=== PATIENT | female | born 1955 | race African-American/Black ===

== ENCOUNTER 2018-08-29 12:50 | Inpatient (IN) | payer MEDICAID ==
[~2018-08-29] VITALS: Ht 165.1 cm; Wt 86.6 kg
[~2018-08-29 12:50] MED LIST: ALBU18HF2 INH; ALBU2.5V13 NEB; AMLO10TA80 PO; AMLO5TAB88 PO; ASPI-1159 PO; BUDE6HFA IH; CHOL100044 PO; DOCU-138 PO; FAMO20TA8 PO; FLUT1DIS3 IH; FURO-152 PO; LISI1TAB13 PO; LORA10TA7 PO; METH4TAB17 PO; NICO-681 TD; NICO1PAT15 TD; OMEP20TA2 PO
[2018-08-29] MEDS ORDERED: ALBUTEROL (0.083%) 2.5MG/3ML NEB HHN STA (14:00)
[2018-08-29] MEDS ORDERED: METHYLPREDNISOLONE SOD SUCC 125 MG/2 ML VIAL IV STA (14:00)
[2018-08-29] MEDS ORDERED: HYDROCODONE/ACETAMINOPHEN 5/325MG TABLET PO STA (14:00)
[2018-08-29] MEDS ORDERED: IPRATROPIUM BROMIDE (0.02%) 0.5MG/2.5ML NEB HHN STA (14:00)
[2018-08-29 14:14] LABS: HEMATOCRIT. 43.1 % (36.0-48.0); HEMOGLOBIN. 14.1 g/dL (12.0-16.0); LYMPHOCYTES % 25.1 % (20.0-50.0); MEAN CORPUSCULAR HEMOGLOBIN 30.1 pg (28.0-32.0); MEAN CORPUSCULAR VOLUME 91.7 fL (81.0-99.0); MEAN PLATELET VOLUME 8.8 fl (7.4-10.4); MONOCYTES % 7.1 % (2.0-8.0); NEUTROPHILS % 65.8 % (40.0-76.0); PLATELET 267 x1000/uL (130-400); RED CELL DISTRIBUTION WIDTH 14.4 % (11.6-14.6)
[2018-08-29 14:21] LABS: CHLORIDE 103 mEq/L (98-107)
[2018-08-29] MEDS ORDERED: CLONIDINE 0.1MG TABLET PO PRN (16:15)
[2018-08-29] MEDS ORDERED: IPRATROPIUM/ALBUTEROL 0.5-3(2.5)MG/3ML NEB HHN PRN (16:15)
[2018-08-29] MEDS: KETOROLAC 30MG/ML VIAL IV PRN (17:22)
[2018-08-29 20:00] VITALS: BP 138/110
[2018-08-29] MEDS: MONTELUKAST SODIUM 10MG TABLET PO SCH (21:30)
[2018-08-29] MEDS: AMLODIPINE 5MG TABLET PO SCH (21:30)
[2018-08-30] VITALS (7 sets, daily range): BP systolic 121–151; BP diastolic 49–86
[2018-08-30] MEDS: KETOROLAC 30MG/ML VIAL IV PRN ×3 (00:25→17:13)
[2018-08-30] MEDS: IPRATROPIUM/ALBUTEROL 0.5-3(2.5)MG/3ML NEB HHN SCH ×5 (01:07→16:03)
[2018-08-30 06:35] LABS: HEMATOCRIT. 39.6 % (36.0-48.0); MEAN CORPUSCULAR HEMOGLOBIN 30.5 pg (28.0-32.0); MEAN CORPUSCULAR VOLUME 92.7 fL (81.0-99.0); MEAN PLATELET VOLUME 8.9 fl (7.4-10.4); PLATELET 238 x1000/uL (130-400); RED BLOOD CELL COUNT 4.27 mill/uL (4.2-5.4); RED CELL DISTRIBUTION WIDTH 14.2 % (11.6-14.6)
[2018-08-30 06:55] LABS: CHLORIDE 102 mEq/L (98-107)
[2018-08-30 08:03] LABS: PLATELET ESTIMATE NORMAL
[2018-08-30] MEDS: METHYLPREDNISOLONE SOD SUCC 40 MG/ML VIAL IV SCH ×2 (09:05→18:11)
[2018-08-30] MEDS: AMLODIPINE 5MG TABLET PO SCH (09:06)
[2018-08-30] MEDS ORDERED: NA PHOS,M-B/NA PHOS,DI-BA ENEMA 118ML PR PRN (09:45)
[2018-08-30] MEDS ORDERED: LACTULOSE 20G/30ML UDC PO SCH (09:45)
[2018-08-30] MEDS ORDERED: BISACODYL 10MG SUPP PR PRN (09:45)
[2018-08-30] MEDS ORDERED: NICOTINE 14MG PATCH TD SCH (13:30)
[2018-08-30] MEDS: MONTELUKAST SODIUM 10MG TABLET PO SCH (17:08)
== END 2018-08-30 19:20 | disposition home or self-care (01) | DRG 140 ==
LOC: ER 12:50 → 5WST 15:13 → EDBEDREQ 15:16 → EDBEDREQTM 15:16 → ENRESERV 16:04
PROVIDERS: ADMIT Internal Medicine; ATTEND Internal Medicine
DX: J44.1 Chronic obstructive pulmonary disease with (acute) exacerbation (principal); J96.20 Acute and chronic respiratory failure, unspecified whether with hypoxia or hypercapnia; Z99.81 Dependence on supplemental oxygen; F17.210 Nicotine dependence, cigarettes, uncomplicated; G40.909 Epilepsy, unspecified, not intractable, without status epilepticus; I10 Essential (primary) hypertension; J98.11 Atelectasis; E66.9 Obesity, unspecified; D72.825 Bandemia; K80.20 Calculus of gallbladder without cholecystitis without obstruction; M94.0 Chondrocostal junction syndrome [Tietze]; Z90.710 Acquired absence of both cervix and uterus; Y93.89 Activity, other specified; Y92.89 Other specified places as the place of occurrence of the external cause; Y99.8 Other external cause status; Y08.89XA Assault by other specified means, initial encounter; Z79.899 Other long term (current) drug therapy; Z79.82 Long term (current) use of aspirin; Z71.6 Tobacco abuse counseling; Z68.31 Body mass index [BMI] 31.0-31.9, adult; Z98.51 Tubal ligation status; Z71.3 Dietary counseling and surveillance
CPT/HCPCS: 36415; 71045; 76700; 80048; 83880; 84484; 93005; 94640; 96374; 99285; 99406; J1885; J2920; J2930; J7611; J7620

== ENCOUNTER 2018-11-23 23:15 | Inpatient (IN) | payer MEDICAID ==
[~2018-11-23] VITALS: Ht 170.2 cm; Wt 88.1 kg
[~2018-11-23 23:15] MED LIST changes: -ASPI-1159 PO; +ASPI-1393 PO
[2018-11-23] MEDS ORDERED: ALBUTEROL (0.083%) 2.5MG/3ML NEB HHN STA (23:32)
[2018-11-23] MEDS ORDERED: IPRATROPIUM BROMIDE (0.02%) 0.5MG/2.5ML NEB HHN STA (23:32)
[2018-11-23] MEDS ORDERED: METHYLPREDNISOLONE SOD SUCC 125 MG/2 ML VIAL IV STA (23:32)
[2018-11-23] MEDS ORDERED: ASPIRIN 81MG TABLET PO ONE (23:45)
[2018-11-23] MEDS ORDERED: ALPRAZOLAM 0.5 MG TABLET PO ONE (23:45)
[2018-11-23] MEDS ORDERED: MAGNESIUM 2 G PREMIX 50 ML IV ONE (23:45)
[2018-11-24 00:18] LABS: CHLORIDE 103 mEq/L (98-107); HEMATOCRIT. 44.7 % (36.0-48.0); HEMOGLOBIN. 14.6 g/dL (12.0-16.0); LYMPHOCYTES % 30.2 % (20.0-50.0); MEAN CORPUSCULAR VOLUME 91.6 fL (81.0-99.0); MEAN PLATELET VOLUME 8.4 fl (7.4-10.4); MONOCYTES % 9.4 % (2.0-8.0); NEUTROPHILS % 58.4 % (40.0-76.0); PLATELET 269 x1000/uL (130-400); RED BLOOD CELL COUNT 4.88 mill/uL (4.2-5.4)
[2018-11-24 05:30] VITALS: BP 117/60
[2018-11-24 05:45] VITALS: BP 117/60
[2018-11-24] MEDS ORDERED: IPRATROPIUM/ALBUTEROL 0.5-3(2.5)MG/3ML NEB HHN PRN (07:00)
[2018-11-24] MEDS ORDERED: CLONIDINE 0.1MG TABLET PO PRN (07:00)
[2018-11-24 08:00] VITALS: BP 123/70
[2018-11-24 08:17] LABS: BG BASE EXCESS 0.3 mmol/L (-2.0-2.0); BG CARBOXYHEMOGLOBIN 1.7 % (0.5-1.5); BG DEOXYHEMOGLOBIN 9.3 % (0.0-5.0); BG HCO3 ACT 25.7 mmol/L (22.0-26.0); BG METHEMOGLOBIN 0.1 % (0.0-1.5); BG OXYGEN SATURATION 90.5 % (92.0-98.5); BG OXYHEMOGLOBIN 88.9 % (94.0-97.0); BG PCO2 43.9 mmHg (35.0-45.0); BG PH 7.385 (7.350-7.450); BG PO2 62.1 mmHg (75.0-100.0); BG SAMPLE SITE RIGHT RADIAL; BG TOTAL HEMOGLOBIN 15.4 g/dL (12.0-18.0); BG VENT MODE NASAL CANNULA
[2018-11-24] MEDS: METHYLPREDNISOLONE SOD SUCC 40 MG/ML VIAL IV SCH ×3 (08:50→21:54)
[2018-11-24] MEDS: PANTOPRAZOLE 40MG DR TABLET PO SCH (08:50)
[2018-11-24] MEDS: ENOXAPARIN 40MG/0.4ML SYR SUBCUT SCH (08:50)
[2018-11-24] MEDS ORDERED: HYDROCODONE/ACETAMINOPHEN 5/325MG TABLET PO PRN (10:00)
[2018-11-24] MEDS ORDERED: ONDANSETRON HCL 4MG/2ML INJ IV PRN (10:00)
[2018-11-24] MEDS ORDERED: GUAIFENESIN-DM 200MG-20MG/10ML UDC PO PRN (10:00)
[2018-11-24 10:05] LABS: CREATINE KINASE 73 IU/L (26-192)
[2018-11-24 10:07] LABS: CREATINE KINASE MB FRACTION 2.2 ng/mL (0.5-3.6)
[2018-11-24] MEDS: CHOLECALCIFEROL (D3) 1000 UNIT TABLET PO SCH (10:58)
[2018-11-24] MEDS: FAMOTIDINE 20MG TABLET PO SCH ×2 (10:59→20:21)
[2018-11-24] MEDS: HYDROCHLOROTHIAZIDE 25MG TABLET PO SCH (10:59)
[2018-11-24] MEDS: LORATADINE 10MG TABLET PO SCH (11:00)
[2018-11-24] MEDS: FUROSEMIDE 20MG TABLET PO SCH (11:00)
[2018-11-24] MEDS: AMLODIPINE 10MG TABLET PO SCH (11:00)
[2018-11-24] MEDS: LISINOPRIL 20MG TABLET PO SCH (11:01)
[2018-11-24] MEDS: NICOTINE 14MG PATCH TD SCH (11:41)
[2018-11-24 12:00] VITALS: BP 106/58
[2018-11-24] MEDS: AZITHROMYCIN 500 MG in DEXT 5% WATER 250 ML IV SCH (12:30)
[2018-11-24] MEDS: IPRATROPIUM/ALBUTEROL 0.5-3(2.5)MG/3ML NEB HHN SCH ×3 (12:55→20:25)
[2018-11-24 16:00] VITALS: BP 111/69
[2018-11-24 19:29] LABS: CREATINE KINASE 77 IU/L (26-192)
[2018-11-24 20:00] VITALS: BP 103/51
[2018-11-24] MEDS: GUAIFENESIN 600MG ER TABLET PO SCH (20:19)
[2018-11-25] VITALS: BP 105/51
[2018-11-25] MEDS: IPRATROPIUM/ALBUTEROL 0.5-3(2.5)MG/3ML NEB HHN SCH ×5 (00:40→15:14)
[2018-11-25 01:49] LABS: CLARITY URINE CLEAR (CLEAR); COLOR URINE YELLOW (YELLOW); KETONES URINE NEGATIVE (NEGATIVE); LEUKOCYTE ESTERASE URINE NEGATIVE (NEGATIVE); NITRITE URINE NEGATIVE (NEGATIVE); OCCULT BLOOD URINE NEGATIVE (NEGATIVE); PROTEIN URINE NEGATIVE (NEGATIVE); UROBILINOGEN URINE 0.2 E.U./dL (0.2-1.0)
[2018-11-25 02:00] LABS: *AMPHETAMINES SCREEN URINE NEGATIVE (NEGATIVE); *BARBITURATES SCREEN URINE NEGATIVE (NEGATIVE); *BENZODIAZEPINES SCREEN URINE NEGATIVE (NEGATIVE); *COCAINE SCREEN URINE NEGATIVE (NEGATIVE); METHADONE URINE SCREEN NEGATIVE (NEGATIVE); OPIATES URINE SCREEN NEGATIVE (NEGATIVE)
[2018-11-25 02:01] LABS: CANNABINOID URINE SCREEN NEGATIVE (NEGATIVE); PHENCYCLIDINE URINE SCREEN NEGATIVE (NEGATIVE)
[2018-11-25 04:00] VITALS: BP 100/42
[2018-11-25] MEDS: METHYLPREDNISOLONE SOD SUCC 40 MG/ML VIAL IV SCH (05:57)
[2018-11-25] MEDS: PANTOPRAZOLE 40MG DR TABLET PO SCH (05:57)
[2018-11-25 08:00] VITALS: BP 127/67
[2018-11-25] MEDS: GUAIFENESIN 600MG ER TABLET PO SCH (09:38)
[2018-11-25] MEDS: LORATADINE 10MG TABLET PO SCH (09:38)
[2018-11-25] MEDS: FUROSEMIDE 20MG TABLET PO SCH (09:38)
[2018-11-25] MEDS: LISINOPRIL 20MG TABLET PO SCH (09:39)
[2018-11-25] MEDS: HYDROCHLOROTHIAZIDE 25MG TABLET PO SCH (09:39)
[2018-11-25] MEDS: CHOLECALCIFEROL (D3) 1000 UNIT TABLET PO SCH (09:39)
[2018-11-25] MEDS: FAMOTIDINE 20MG TABLET PO SCH (09:39)
[2018-11-25] MEDS: NICOTINE 14MG PATCH TD SCH (09:39)
[2018-11-25] MEDS: AMLODIPINE 10MG TABLET PO SCH (09:39)
[2018-11-25] MEDS: ENOXAPARIN 40MG/0.4ML SYR SUBCUT SCH (09:40)
[2018-11-25 12:00] VITALS: BP 116/58
[2018-11-25] MEDS: AZITHROMYCIN 500 MG in DEXT 5% WATER 250 ML IV SCH (13:23)
[2018-11-25 16:00] VITALS: BP 108/53
[2018-11-25 16:26] VITALS: BP 120/60
[2018-11-26] MEDS ORDERED: PREDNISONE 20MG TABLET PO SCH (09:00)
== END 2018-11-25 17:56 | disposition home or self-care (01) | DRG 140 ==
LOC: ER 23:37 → 5WST 11-24 02:24 → EDBEDREQTM 11-24 02:33 → EDBEDREQ 11-24 02:33 → EDBEDREQDT 11-24 02:33 → ENRESERV 11-24 02:58
PROVIDERS: ADMIT Internal Medicine; ATTEND Internal Medicine
DX: J44.1 Chronic obstructive pulmonary disease with (acute) exacerbation (principal); J96.00 Acute respiratory failure, unspecified whether with hypoxia or hypercapnia; Z99.81 Dependence on supplemental oxygen; F17.210 Nicotine dependence, cigarettes, uncomplicated; I10 Essential (primary) hypertension; D72.821 Monocytosis (symptomatic); Z90.710 Acquired absence of both cervix and uterus; Z98.51 Tubal ligation status; Z88.5 Allergy status to narcotic agent; Z79.82 Long term (current) use of aspirin; Z79.899 Other long term (current) drug therapy; Z71.6 Tobacco abuse counseling
CPT/HCPCS: 36415; 36600; 71045; 80061; 80305; 82375; 82550; 82553; 82805; 83735; 83880; 84484; 93005; 93306; 93970; 94640; 94644; 96365; 96366; 96375; 99285; J0456; J1650; J2920; J2930; J3475; J7050; J7060; J7611; J7620

== ENCOUNTER 2018-12-10 22:50 | Inpatient (IN) | payer MEDICAID ==
[~2018-12-10] VITALS: Ht 170.2 cm; Wt 81.6 kg
[2018-12-10] MEDS ORDERED: IPRATROPIUM BROMIDE (0.02%) 0.5MG/2.5ML NEB HHN STA (23:19)
[2018-12-10] MEDS ORDERED: METHYLPREDNISOLONE SOD SUCC 125 MG/2 ML VIAL IV STA (23:19)
[2018-12-10] MEDS ORDERED: ONDANSETRON HCL 4MG/2ML INJ IV STA (23:19)
[2018-12-10] MEDS ORDERED: MAGNESIUM 2 G PREMIX 50 ML IV ONE (23:30)
[2018-12-10] MEDS ORDERED: HYDROCODONE/ACETAMINOPHEN 5/325MG TABLET PO ONE (23:30)
[2018-12-10] MEDS: ALBUTEROL (0.083%) 2.5MG/3ML NEB HHN SCH (23:45)
[2018-12-11] VITALS (8 sets, daily range): BP systolic 112–142; BP diastolic 55–77
[2018-12-11 00:14] LABS: BASOPHILS % 0.6 % (0.0-2.0); EOSINOPHILS % 0.8 % (0.0-5.0); HEMATOCRIT. 40.2 % (36.0-48.0); HEMOGLOBIN. 13.3 g/dL (12.0-16.0); LYMPHOCYTES % 26.1 % (20.0-50.0); MEAN CORPUSCULAR HEMOGLOBIN 30.2 pg (28.0-32.0); MEAN CORPUSCULAR VOLUME 91.3 fL (81.0-99.0); MEAN PLATELET VOLUME 8.6 fl (7.4-10.4); MONOCYTES % 7.9 % (2.0-8.0); NEUTROPHILS % 64.6 % (40.0-76.0); PLATELET 212 x1000/uL (130-400); RED BLOOD CELL COUNT 4.41 mill/uL (4.2-5.4); RED CELL DISTRIBUTION WIDTH 13.6 % (11.6-14.6)
[2018-12-11] MEDS: ALBUTEROL (0.083%) 2.5MG/3ML NEB HHN SCH ×2 (00:15→00:45)
[2018-12-11 00:25] LABS: CHLORIDE 108 mEq/L (98-107)
[2018-12-11] MEDS ORDERED: ONDANSETRON HCL 4MG/2ML INJ IV PRN (06:00)
[2018-12-11] MEDS ORDERED: ACETAMINOPHEN 650MG/20.3ML UDC PO PRN (06:00)
[2018-12-11] MEDS: METHYLPREDNISOLONE SOD SUCC 40 MG/ML VIAL IV SCH ×3 (06:53→21:02)
[2018-12-11] MEDS: LORAZEPAM 2MG/ML CPJ IV PRN ×2 (06:54→23:16)
[2018-12-11] MEDS: OMEPRAZOLE 20MG CAPSULE EXTENDED RELEASE PO SCH (06:54)
[2018-12-11] MEDS: HYDROCODONE/ACETAMINOPHEN 5/325MG TABLET PO PRN ×2 (06:55→21:09)
[2018-12-11] MEDS: ENOXAPARIN 40MG/0.4ML SYR SUBCUT SCH (09:11)
[2018-12-11 09:48] LABS: CREATINE KINASE 75 IU/L (26-192)
[2018-12-11 09:49] LABS: CREATINE KINASE MB FRACTION 1.5 ng/mL (0.5-3.6)
[2018-12-11] MEDS ORDERED: POTASSIUM CHLORIDE 20MEQ TABLET SR PO SCH (14:15)
[2018-12-11] MEDS: NICOTINE 14MG PATCH TD SCH (14:57)
[2018-12-11] MEDS: AMLODIPINE 10MG TABLET PO SCH (19:11)
[2018-12-11] MEDS: GUAIFENESIN 600MG ER TABLET PO SCH (21:02)
[2018-12-11] MEDS: BUDESONIDE 0.5MG/2ML NEB HHN SCH (21:37)
[2018-12-12 04:00] VITALS: BP 112/45
[2018-12-12] MEDS: METHYLPREDNISOLONE SOD SUCC 40 MG/ML VIAL IV SCH ×3 (06:19→21:27)
[2018-12-12] MEDS: OMEPRAZOLE 20MG CAPSULE EXTENDED RELEASE PO SCH (06:19)
[2018-12-12 08:00] VITALS: BP 102/47
[2018-12-12] MEDS: LISINOPRIL 20MG TABLET PO SCH (08:32)
[2018-12-12] MEDS: AMLODIPINE 10MG TABLET PO SCH (08:32)
[2018-12-12] MEDS: FUROSEMIDE 20MG TABLET PO SCH (09:00)
[2018-12-12] MEDS: BUDESONIDE 0.5MG/2ML NEB HHN SCH ×2 (09:14→20:04)
[2018-12-12] MEDS: GUAIFENESIN 600MG ER TABLET PO SCH ×2 (09:51→21:27)
[2018-12-12] MEDS: ASPIRIN 81MG TABLET PO SCH (09:51)
[2018-12-12] MEDS: LORATADINE 10MG TABLET PO SCH (09:51)
[2018-12-12] MEDS: CHOLECALCIFEROL (D3) 1000 UNIT TABLET PO SCH (09:51)
[2018-12-12] MEDS: ENOXAPARIN 40MG/0.4ML SYR SUBCUT SCH (09:51)
[2018-12-12] MEDS: NICOTINE 14MG PATCH TD SCH (09:52)
[2018-12-12 12:00] VITALS: BP 110/51
[2018-12-12] MEDS: ALPRAZOLAM 0.25 MG TABLET PO SCH ×2 (14:44→21:27)
[2018-12-12 16:02] VITALS: BP 98/47
[2018-12-12 16:16] LABS: CHLORIDE 105 mEq/L (98-107)
[2018-12-12 20:00] VITALS: BP 109/52
[2018-12-13] VITALS: BP 111/62
[2018-12-13 04:00] VITALS: BP 130/80
[2018-12-13 06:56] LABS: HEMATOCRIT. 41.3 % (36.0-48.0); HEMOGLOBIN. 13.4 g/dL (12.0-16.0); MEAN CORPUSCULAR HEMOGLOBIN 30.2 pg (28.0-32.0); MEAN CORPUSCULAR VOLUME 92.8 fL (81.0-99.0); MEAN PLATELET VOLUME 9.3 fl (7.4-10.4); PLATELET 214 x1000/uL (130-400); RED BLOOD CELL COUNT 4.45 mill/uL (4.2-5.4)
[2018-12-13] MEDS: ALPRAZOLAM 0.25 MG TABLET PO SCH ×3 (06:57→21:35)
[2018-12-13] MEDS: METHYLPREDNISOLONE SOD SUCC 40 MG/ML VIAL IV SCH ×3 (06:57→21:35)
[2018-12-13 07:09] LABS: CHLORIDE 108 mEq/L (98-107)
[2018-12-13 08:00] VITALS: BP 130/70
[2018-12-13] MEDS: NICOTINE 14MG PATCH TD SCH (08:51)
[2018-12-13] MEDS: LORATADINE 10MG TABLET PO SCH (08:51)
[2018-12-13] MEDS: ENOXAPARIN 40MG/0.4ML SYR SUBCUT SCH (08:51)
[2018-12-13] MEDS: FUROSEMIDE 20MG TABLET PO SCH (08:51)
[2018-12-13] MEDS: CHOLECALCIFEROL (D3) 1000 UNIT TABLET PO SCH (08:51)
[2018-12-13] MEDS: LISINOPRIL 20MG TABLET PO SCH (08:51)
[2018-12-13] MEDS: GUAIFENESIN 600MG ER TABLET PO SCH ×2 (08:52→21:35)
[2018-12-13] MEDS: AMLODIPINE 10MG TABLET PO SCH (08:52)
[2018-12-13] MEDS: ASPIRIN 81MG TABLET PO SCH (08:52)
[2018-12-13] MEDS: FAMOTIDINE 20MG TABLET PO SCH ×2 (08:52→21:35)
[2018-12-13 11:51] VITALS: BP 118/59
[2018-12-13 11:58] LABS: PLATELET ESTIMATE NORMAL
[2018-12-13] MEDS ORDERED: TERBUTALINE SULFATE 1MG/ML VIAL SUBCUT NR (13:30)
[2018-12-13 20:00] VITALS: BP_SYST 121; BP_SYST 126; BP_DIAS 61; BP_DIAS 70
[2018-12-13] MEDS: HYDROCODONE/ACETAMINOPHEN 5/325MG TABLET PO PRN (20:15)
[2018-12-13] MEDS: BUDESONIDE 0.5MG/2ML NEB HHN SCH (21:01)
[2018-12-14] VITALS (7 sets, daily range): BP systolic 109–138; BP diastolic 55–80
[2018-12-14] MEDS: METHYLPREDNISOLONE SOD SUCC 40 MG/ML VIAL IV SCH ×3 (05:23→21:32)
[2018-12-14] MEDS: ALPRAZOLAM 0.25 MG TABLET PO SCH ×3 (05:23→21:15)
[2018-12-14 06:39] LABS: HEMATOCRIT. 40.5 % (36.0-48.0); HEMOGLOBIN. 13.2 g/dL (12.0-16.0); MEAN CORPUSCULAR VOLUME 92.2 fL (81.0-99.0); MEAN PLATELET VOLUME 9.4 fl (7.4-10.4); PLATELET 210 x1000/uL (130-400); RED BLOOD CELL COUNT 4.39 mill/uL (4.2-5.4)
[2018-12-14 06:52] LABS: CHLORIDE 107 mEq/L (98-107)
[2018-12-14] MEDS: GUAIFENESIN 600MG ER TABLET PO SCH ×2 (09:11→21:15)
[2018-12-14] MEDS: DOCUSATE SODIUM 100MG CAPSULE PO SCH (09:11)
[2018-12-14] MEDS: LORATADINE 10MG TABLET PO SCH (09:11)
[2018-12-14] MEDS: LISINOPRIL 20MG TABLET PO SCH (09:11)
[2018-12-14] MEDS: ASPIRIN 81MG TABLET PO SCH (09:11)
[2018-12-14] MEDS: AMLODIPINE 10MG TABLET PO SCH (09:11)
[2018-12-14] MEDS: CHOLECALCIFEROL (D3) 1000 UNIT TABLET PO SCH (09:11)
[2018-12-14] MEDS: FUROSEMIDE 20MG TABLET PO SCH (09:11)
[2018-12-14] MEDS: FAMOTIDINE 20MG TABLET PO SCH ×2 (09:11→21:15)
[2018-12-14] MEDS: NICOTINE 14MG PATCH TD SCH (09:12)
[2018-12-14] MEDS: ENOXAPARIN 40MG/0.4ML SYR SUBCUT SCH (09:12)
[2018-12-14] MEDS: BUDESONIDE 0.5MG/2ML NEB HHN SCH (09:25)
[2018-12-14 13:20] LABS: PLATELET ESTIMATE NORMAL
[2018-12-14] MEDS ORDERED: SORBITOL 70% SOLN 30ML PO SCH (19:00)
[2018-12-14] MEDS: HYDROCODONE/ACETAMINOPHEN 5/325MG TABLET PO PRN (23:42)
[2018-12-15 04:00] VITALS: BP 147/78
[2018-12-15] MEDS: ALPRAZOLAM 0.25 MG TABLET PO SCH ×3 (06:00→14:04)
[2018-12-15] MEDS: METHYLPREDNISOLONE SOD SUCC 40 MG/ML VIAL IV SCH ×2 (06:00→14:11)
[2018-12-15 08:00] VITALS: BP 149/85
[2018-12-15] MEDS: LORATADINE 10MG TABLET PO SCH (08:12)
[2018-12-15] MEDS: FUROSEMIDE 20MG TABLET PO SCH (08:13)
[2018-12-15] MEDS: DOCUSATE SODIUM 100MG CAPSULE PO SCH (08:13)
[2018-12-15] MEDS: CHOLECALCIFEROL (D3) 1000 UNIT TABLET PO SCH (08:13)
[2018-12-15] MEDS: GUAIFENESIN 600MG ER TABLET PO SCH (08:13)
[2018-12-15] MEDS: ASPIRIN 81MG TABLET PO SCH (08:13)
[2018-12-15] MEDS: FAMOTIDINE 20MG TABLET PO SCH (08:13)
[2018-12-15] MEDS: AMLODIPINE 10MG TABLET PO SCH (08:13)
[2018-12-15] MEDS: ENOXAPARIN 40MG/0.4ML SYR SUBCUT SCH (08:14)
[2018-12-15] MEDS: NICOTINE 14MG PATCH TD SCH (08:14)
[2018-12-15] MEDS: LISINOPRIL 20MG TABLET PO SCH (08:17)
[2018-12-15 12:00] VITALS: BP 126/78
[2018-12-15 16:00] VITALS: BP 150/75
[2018-12-15 19:00] VITALS: BP 155/75
== END 2018-12-15 20:25 | disposition home or self-care (01) | DRG 140 ==
LOC: ER 22:50 → 8WST 12-11 03:03 → EDBEDREQ 12-11 03:05 → EDBEDREQDT 12-11 03:05 → EDBEDREQTM 12-11 03:05 → ENRESERV 12-11 03:25
PROVIDERS: ADMIT Internal Medicine; ATTEND Internal Medicine
DX: J44.1 Chronic obstructive pulmonary disease with (acute) exacerbation (principal); J96.00 Acute respiratory failure, unspecified whether with hypoxia or hypercapnia; E87.0 Hyperosmolality and hypernatremia; Z99.81 Dependence on supplemental oxygen; E87.6 Hypokalemia; G40.909 Epilepsy, unspecified, not intractable, without status epilepticus; F17.210 Nicotine dependence, cigarettes, uncomplicated; I10 Essential (primary) hypertension; J06.9 Acute upper respiratory infection, unspecified; Z90.710 Acquired absence of both cervix and uterus; F10.10 Alcohol abuse, uncomplicated; F41.9 Anxiety disorder, unspecified; E78.5 Hyperlipidemia, unspecified; Z79.82 Long term (current) use of aspirin; Z98.51 Tubal ligation status; Z71.6 Tobacco abuse counseling
CPT/HCPCS: 36415; 71045; 80048; 82550; 82553; 83605; 83880; 84484; 93005; 94640; 96365; 96366; 96375; 99285; J1650; J2060; J2405; J2920; J2930; J3105; J3475; J7611; J7626

== ENCOUNTER 2019-01-28 13:39 | Emergency (ER) | payer MEDICAID ==
[~2019-01-28] VITALS: Ht 167.6 cm; Wt 85.0 kg
[2019-01-28] MEDS ORDERED: TRAMADOL 50MG TABLET PO ONE (16:15)
[2019-01-28 16:32] VITALS: BP 172/94
[2019-01-28] MEDS ORDERED: IPRATROPIUM BROMIDE (0.02%) 0.5MG/2.5ML NEB HHN STA (18:36)
[2019-01-28] MEDS ORDERED: ALBUTEROL (0.083%) 2.5MG/3ML NEB HHN STA (18:36)
== END 2019-01-28 20:28 | disposition home or self-care (01) ==
LOC: ER 13:39
DX: S00.83XA Contusion of other part of head, initial encounter (principal); S20.219A Contusion of unspecified front wall of thorax, initial encounter; J44.9 Chronic obstructive pulmonary disease, unspecified; I10 Essential (primary) hypertension; Z79.899 Other long term (current) drug therapy; Y04.0XXA Assault by unarmed brawl or fight, initial encounter; Y93.89 Activity, other specified; Y92.89 Other specified places as the place of occurrence of the external cause; Y99.8 Other external cause status
CPT/HCPCS: 70450; 70486; 71045; 94640; 99284; J7611; Z7610

== ENCOUNTER 2019-05-20 23:48 | Emergency (ER) | payer MEDICAID ==
[~2019-05-20] VITALS: Ht 172.7 cm; Wt 81.0 kg
[~2019-05-20 23:48] MED LIST changes: -ASPI-1393 PO; +ASPI-1497 PO
[2019-05-21] MEDS ORDERED: ALBUTEROL (0.083%) 2.5MG/3ML NEB HHN STA (00:10)
[2019-05-21] MEDS ORDERED: PREDNISONE 20MG TABLET PO STA (00:10)
[2019-05-21] MEDS ORDERED: IPRATROPIUM BROMIDE (0.02%) 0.5MG/2.5ML NEB HHN STA (00:10)
[2019-05-21] MEDS ORDERED: GUAIFENESIN/CODEINE 200-20MG/10ML UDC PO ONE (00:15)
[2019-05-21 00:43] LABS: BASOPHILS % 0.6 % (0.0-2.0); EOSINOPHILS % 0.8 % (0.0-5.0); HEMATOCRIT. 38.9 % (36.0-48.0); HEMOGLOBIN. 12.7 g/dL (12.0-16.0); LYMPHOCYTES % 14.1 % (20.0-50.0); MEAN CORPUSCULAR HEMOGLOBIN 29.6 pg (28.0-32.0); MEAN CORPUSCULAR VOLUME 90.7 fL (81.0-99.0); MEAN PLATELET VOLUME 7.7 fl (7.4-10.4); MONOCYTES % 6.1 % (2.0-8.0); NEUTROPHILS % 78.4 % (40.0-76.0); PLATELET 239 x1000/uL (130-400); RED BLOOD CELL COUNT 4.29 mill/uL (4.2-5.4); RED CELL DISTRIBUTION WIDTH 15.1 % (11.6-14.6)
[2019-05-21 00:46] LABS: CHLORIDE 104 mEq/L (98-107)
[2019-05-21 01:34] VITALS: BP 119/68
== END 2019-05-21 01:42 | disposition home or self-care (01) ==
LOC: ER 23:48
DX: J44.1 Chronic obstructive pulmonary disease with (acute) exacerbation (principal); I10 Essential (primary) hypertension; F17.210 Nicotine dependence, cigarettes, uncomplicated; Z71.6 Tobacco abuse counseling
CPT/HCPCS: 36415; 71045; 80053; 83880; 84484; 85025; 93005; 94640; 99284; 99406; J7512; J7611; Z7610

== ENCOUNTER 2019-05-31 13:14 | Emergency (ER) | payer MEDICAID ==
[~2019-05-31] VITALS: Ht 170.2 cm; Wt 82.0 kg
[2019-05-31] MEDS ORDERED: IBUPROFEN 600MG TABLET PO ONE (15:00)
[2019-05-31 16:20] LABS: CLARITY URINE CLEAR (CLEAR); COLOR URINE YELLOW (YELLOW); KETONES URINE NEGATIVE (NEGATIVE); LEUKOCYTE ESTERASE URINE NEGATIVE (NEGATIVE); NITRITE URINE NEGATIVE (NEGATIVE); OCCULT BLOOD URINE NEGATIVE (NEGATIVE); PROTEIN URINE NEGATIVE (NEGATIVE); SPECIFIC GRAVITY URINE 1.012 (1.005-1.030); UROBILINOGEN URINE 0.2 E.U./dL (0.2-1.0)
[2019-05-31 16:26] VITALS: BP 127/66
== END 2019-05-31 16:26 | disposition home or self-care (01) ==
LOC: ER 13:14
DX: M25.552 Pain in left hip (principal); I10 Essential (primary) hypertension; J45.909 Unspecified asthma, uncomplicated; F17.210 Nicotine dependence, cigarettes, uncomplicated
CPT/HCPCS: 73502; 81003; 99284

== ENCOUNTER 2019-06-30 12:10 | Inpatient (IN) | payer MEDICAID ==
[~2019-06-30] VITALS: Ht 170.2 cm; Wt 83.5 kg
[2019-06-30] MEDS ORDERED: METHYLPREDNISOLONE SOD SUCC 125 MG/2 ML VIAL IV STA (12:26)
[2019-06-30] MEDS ORDERED: ALBUTEROL (0.083%) 2.5MG/3ML NEB HHN STA (12:26)
[2019-06-30] MEDS ORDERED: IPRATROPIUM BROMIDE (0.02%) 0.5MG/2.5ML NEB HHN STA (12:26)
[2019-06-30] MEDS ORDERED: ALBUTEROL (0.5%) 2.5MG/0.5ML NEB HHN ONE ×2 (12:55→17:50)
[2019-06-30 12:57] LABS: BASOPHILS % 0.7 % (0.0-2.0); EOSINOPHILS % 1.1 % (0.0-5.0); HEMATOCRIT. 42.6 % (36.0-48.0); LYMPHOCYTES % 24.5 % (20.0-50.0); MEAN CORPUSCULAR VOLUME 88.1 fL (81.0-99.0); MEAN PLATELET VOLUME 8.6 fl (7.4-10.4); NEUTROPHILS % 65.7 % (40.0-76.0); PLATELET 261 x1000/uL (130-400); RED BLOOD CELL COUNT 4.83 mill/uL (4.2-5.4); RED CELL DISTRIBUTION WIDTH 15.6 % (11.6-14.6)
[2019-06-30 12:59] LABS: CHLORIDE 101 mEq/L (98-107)
[2019-06-30] MEDS ORDERED: ACETAMINOPHEN 500MG TABLET PO ONE (15:00)
[2019-06-30] MEDS ORDERED: IPRATROPIUM BROMIDE (0.02%) 0.5MG/2.5ML NEB ONE (17:50)
[2019-06-30] MEDS ORDERED: ACETAMINOPHEN 325MG TABLET PO PRN (20:30)
[2019-06-30] MEDS ORDERED: IPRATROPIUM/ALBUTEROL 0.5-3(2.5)MG/3ML NEB HHN PRN (20:30)
[2019-06-30] MEDS ORDERED: ONDANSETRON HCL 4MG/2ML INJ IV PRN (20:30)
[2019-06-30] MEDS ORDERED: ZOLPIDEM TARTRATE 5MG TABLET PO NR (23:00)
[2019-06-30] MEDS ORDERED: POTASSIUM CHLORIDE 20MEQ TABLET SR PO NR (23:00)
[2019-06-30] MEDS ORDERED: METHYLPREDNISOLONE SOD SUCC 40 MG/ML VIAL IV NR (23:00)
[2019-06-30] MEDS: IPRATROPIUM/ALBUTEROL 0.5-3(2.5)MG/3ML NEB HHN SCH (23:20)
[2019-07-01] VITALS (7 sets, daily range): BP systolic 126–137; BP diastolic 59–71
[2019-07-01] MEDS: METHYLPREDNISOLONE SOD SUCC 40 MG/ML VIAL IV SCH ×2 (06:00→13:53)
[2019-07-01 07:34] LABS: CHLORIDE 105 mEq/L (98-107)
[2019-07-01] MEDS ORDERED: ENOXAPARIN 40MG/0.4ML SYR SUBCUT SCH (09:00)
[2019-07-01] MEDS: IPRATROPIUM/ALBUTEROL 0.5-3(2.5)MG/3ML NEB HHN SCH ×2 (09:14→16:14)
[2019-07-01] MEDS ORDERED: BENZONATATE 100MG CAPSULE PO PRN (13:15)
[2019-07-01] MEDS ORDERED: LACTULOSE 20G/30ML UDC PO NR (15:15)
[2019-07-01] MEDS ORDERED: NICO-645 TP (15:44)
[2019-07-01] MEDS ORDERED: MONTELUKAST SODIUM 10MG TABLET PO SCH (17:00)
[2019-07-01] MEDS ORDERED: ZOLPIDEM TARTRATE 5MG TABLET PO PRN (21:00)
== END 2019-07-01 16:50 | disposition home or self-care (01) | DRG 140 ==
LOC: ER 12:10 → EDBEDREQTM 18:21 → EDBEDREQ 18:21 → ENRESERV 23:20 → 6WST 07-01 00:08
PROVIDERS: ADMIT Internal Medicine; ATTEND Internal Medicine
DX: J44.1 Chronic obstructive pulmonary disease with (acute) exacerbation (principal); J96.20 Acute and chronic respiratory failure, unspecified whether with hypoxia or hypercapnia; Z99.81 Dependence on supplemental oxygen; M94.0 Chondrocostal junction syndrome [Tietze]; I10 Essential (primary) hypertension; F17.210 Nicotine dependence, cigarettes, uncomplicated; E87.6 Hypokalemia; Z79.899 Other long term (current) drug therapy; Z79.82 Long term (current) use of aspirin; Z71.6 Tobacco abuse counseling
CPT/HCPCS: 36415; 71045; 80048; 80053; 83880; 84484; 85025; 93005; 94640; 94644; 99285; J1650; J2930

== ENCOUNTER 2019-07-23 04:42 | Inpatient (IN) | payer MEDICAID ==
[~2019-07-23] VITALS: Ht 170.2 cm; Wt 84.4 kg
[~2019-07-23 04:42] MED LIST changes: -FURO-152 PO; +NICO-645 TP
[2019-07-23] MEDS ORDERED: IPRATROPIUM BROMIDE (0.02%) 0.5MG/2.5ML NEB HHN STA (04:54)
[2019-07-23] MEDS ORDERED: ONDANSETRON HCL 4MG/2ML INJ IV STA (04:54)
[2019-07-23] MEDS ORDERED: METHYLPREDNISOLONE SOD SUCC 125 MG/2 ML VIAL IV STA (04:54)
[2019-07-23] MEDS ORDERED: ALBUTEROL (0.083%) 2.5MG/3ML NEB HHN SCH (05:00)
[2019-07-23] MEDS ORDERED: MAGNESIUM 2 G PREMIX 50 ML IV ONE (05:00)
[2019-07-23 05:25] LABS: HEMATOCRIT. 41.3 % (36.0-48.0); HEMOGLOBIN. 13.4 g/dL (12.0-16.0); MEAN CORPUSCULAR HEMOGLOBIN 28.6 pg (28.0-32.0); MEAN PLATELET VOLUME 8.3 fl (7.4-10.4); PLATELET 245 x1000/uL (130-400); RED BLOOD CELL COUNT 4.69 mill/uL (4.2-5.4); RED CELL DISTRIBUTION WIDTH 16.1 % (11.6-14.6)
[2019-07-23 05:34] LABS: CHLORIDE 107 mEq/L (98-107)
[2019-07-23 07:16] LABS: PLATELET ESTIMATE NORMAL
[2019-07-23 08:22] LABS: BG BASE EXCESS -1.4 mmol/L (-2.0-2.0); BG BILEVEL POS AIRWAY PRESSURE 18/5; BG CARBOXYHEMOGLOBIN 1.1 % (0.5-1.5); BG FRACTION INSPIRED OXYGEN 50; BG HCO3 ACT 26.9 mmol/L (22.0-26.0); BG OXYHEMOGLOBIN 97.9 % (94.0-97.0); BG PCO2 61.3 mmHg (35.0-45.0); BG PO2 174.1 mmHg (75.0-100.0); BG SAMPLE SITE RIGHT RADIAL; BG TOTAL HEMOGLOBIN 13.9 g/dL (12.0-18.0); BG VENT MODE MASK - BIPAP; BG VENT RATE 16 set
[2019-07-23] MEDS ORDERED: CLONIDINE 0.1MG TABLET PO PRN (08:45)
[2019-07-23] MEDS ORDERED: IPRATROPIUM/ALBUTEROL 0.5-3(2.5)MG/3ML NEB HHN PRN (08:45)
[2019-07-23] MEDS: ENOXAPARIN 40MG/0.4ML SYR SUBCUT SCH (09:24)
[2019-07-23 09:30] VITALS: BP 130/67
[2019-07-23] MEDS: IPRATROPIUM/ALBUTEROL 0.5-3(2.5)MG/3ML NEB HHN SCH ×3 (11:07→20:26)
[2019-07-23] MEDS: METHYLPREDNISOLONE SOD SUCC 40 MG/ML VIAL IV SCH ×2 (13:38→21:19)
[2019-07-23] MEDS: ACETAMINOPHEN 325MG TABLET PO PRN ×2 (13:39→21:20)
[2019-07-23] MEDS: NICOTINE 14MG PATCH TD SCH (13:44)
[2019-07-23 14:00] VITALS: BP 131/75
[2019-07-23 16:00] VITALS: BP 157/86
[2019-07-23 18:00] VITALS: BP 136/71
[2019-07-23] MEDS: BENZONATATE 100MG CAPSULE PO PRN (18:36)
[2019-07-23 20:00] VITALS: BP 131/71
[2019-07-23 22:00] VITALS: BP 130/79
[2019-07-24] VITALS (13 sets, daily range): BP systolic 121–163; BP diastolic 66–91
[2019-07-24] MEDS: IPRATROPIUM/ALBUTEROL 0.5-3(2.5)MG/3ML NEB HHN SCH ×6 (00:09→20:11)
[2019-07-24] MEDS: METHYLPREDNISOLONE SOD SUCC 40 MG/ML VIAL IV SCH ×3 (05:13→20:31)
[2019-07-24 05:23] LABS: HEMOGLOBIN. 12.8 g/dL (12.0-16.0); MEAN CORPUSCULAR HEMOGLOBIN 28.4 pg (28.0-32.0); MEAN CORPUSCULAR VOLUME 88.5 fL (81.0-99.0); MEAN PLATELET VOLUME 8.4 fl (7.4-10.4); PLATELET 269 x1000/uL (130-400); RED BLOOD CELL COUNT 4.52 mill/uL (4.2-5.4); RED CELL DISTRIBUTION WIDTH 16.3 % (11.6-14.6)
[2019-07-24 05:34] LABS: CHLORIDE 106 mEq/L (98-107)
[2019-07-24 08:24] LABS: PLATELET ESTIMATE NORMAL
[2019-07-24] MEDS: NICOTINE 14MG PATCH TD SCH (09:44)
[2019-07-24] MEDS: ENOXAPARIN 40MG/0.4ML SYR SUBCUT SCH (09:44)
[2019-07-24 10:25] LABS: CLARITY URINE CLEAR (CLEAR); COLOR URINE YELLOW (YELLOW); KETONES URINE NEGATIVE (NEGATIVE); LEUKOCYTE ESTERASE URINE NEGATIVE (NEGATIVE); NITRITE URINE NEGATIVE (NEGATIVE); OCCULT BLOOD URINE NEGATIVE (NEGATIVE); PH URINE 5.5 (4.5-8.0); PROTEIN URINE NEGATIVE (NEGATIVE); SPECIFIC GRAVITY URINE 1.014 (1.005-1.030); UROBILINOGEN URINE 0.2 E.U./dL (0.2-1.0)
[2019-07-24 10:36] LABS: METHADONE URINE SCREEN NEGATIVE (NEGATIVE); OPIATES URINE SCREEN NEGATIVE (NEGATIVE)
[2019-07-24 10:37] LABS: *AMPHETAMINES SCREEN URINE NEGATIVE (NEGATIVE); *BARBITURATES SCREEN URINE NEGATIVE (NEGATIVE); *BENZODIAZEPINES SCREEN URINE NEGATIVE (NEGATIVE); *COCAINE SCREEN URINE NEGATIVE (NEGATIVE); CANNABINOID URINE SCREEN NEGATIVE (NEGATIVE); PHENCYCLIDINE URINE SCREEN NEGATIVE (NEGATIVE)
[2019-07-24] MEDS: HYDROCODONE/ACETAMINOPHEN 5/325MG TABLET PO PRN ×2 (12:51→20:44)
[2019-07-24] MEDS: KETOROLAC 15MG/ML VIAL IV PRN (17:05)
[2019-07-24] MEDS ORDERED: DOCUSATE SODIUM 250MG CAPSULE PO PRN (20:00)
[2019-07-24] MEDS: MAGNESIUM/ALUMINUM HYDROXIDE/SIMETHICONE 30ML UDC PO PRN (20:31)
[2019-07-25] VITALS (11 sets, daily range): BP systolic 134–167; BP diastolic 45–93
[2019-07-25] MEDS: IPRATROPIUM/ALBUTEROL 0.5-3(2.5)MG/3ML NEB HHN SCH ×6 (00:10→20:35)
[2019-07-25] MEDS: METHYLPREDNISOLONE SOD SUCC 40 MG/ML VIAL IV SCH ×2 (05:15→13:52)
[2019-07-25] MEDS: ENOXAPARIN 40MG/0.4ML SYR SUBCUT SCH (09:10)
[2019-07-25] MEDS: NICOTINE 14MG PATCH TD SCH (09:10)
[2019-07-25] MEDS: KETOROLAC 15MG/ML VIAL IV PRN ×2 (11:24→17:58)
[2019-07-25] MEDS ORDERED: MED4 MT (12:35)
[2019-07-25] MEDS ORDERED: BENZ-16 MT (12:35)
[2019-07-25] MEDS ORDERED: ALBU18HF2 INH (12:35)
[2019-07-25] MEDS ORDERED: TERBUTALINE SULFATE 1MG/ML VIAL SUBCUT SCH (16:00)
[2019-07-25] MEDS: BENZONATATE 100MG CAPSULE PO PRN (17:58)
[2019-07-25] MEDS: PREDNISONE 20MG TABLET PO SCH (17:59)
[2019-07-26] MEDS: IPRATROPIUM/ALBUTEROL 0.5-3(2.5)MG/3ML NEB HHN SCH ×4 (00:11→12:05)
[2019-07-26 02:00] VITALS: BP 158/97
[2019-07-26 04:00] VITALS: BP 140/80
[2019-07-26 06:00] VITALS: BP 146/81
[2019-07-26 07:56] VITALS: BP 148/73
[2019-07-26] MEDS: ENOXAPARIN 40MG/0.4ML SYR SUBCUT SCH (08:19)
[2019-07-26] MEDS: PREDNISONE 20MG TABLET PO SCH (08:19)
[2019-07-26] MEDS: NICOTINE 14MG PATCH TD SCH (08:19)
[2019-07-26] MEDS ORDERED: IPRA3AMP9 HHN (08:40)
[2019-07-26] MEDS ORDERED: IPRA3AMP9 NEB (08:53)
[2019-07-26] MEDS: MAGNESIUM/ALUMINUM HYDROXIDE/SIMETHICONE 30ML UDC PO PRN (09:57)
== END 2019-07-26 23:35 | disposition home or self-care (01) | DRG 140 ==
LOC: ER 04:42 → EDBEDREQSVC 05:08 → 5EST 05:42 → EDBEDREQ 05:54 → EDBEDREQTM 05:54 → ENRESERV 07:34
PROVIDERS: ADMIT Internal Medicine; ATTEND Internal Medicine
PROC: 5A09357 Assistance with Respiratory Ventilation, Less than 24 Consecutive Hours, Continuous Positive Airway Pressure (ICD-10-PCS; principal; 2019-07-23)
PROC: 5A09357 Assistance with Respiratory Ventilation, Less than 24 Consecutive Hours, Continuous Positive Airway Pressure (ICD-10-PCS; 2019-07-25)
DX: J44.1 Chronic obstructive pulmonary disease with (acute) exacerbation (principal); J96.21 Acute and chronic respiratory failure with hypoxia; E87.2 Acidosis; E87.8 Other disorders of electrolyte and fluid balance, not elsewhere classified; J96.22 Acute and chronic respiratory failure with hypercapnia; I10 Essential (primary) hypertension; Z60.2 Problems related to living alone; T50.2X6A Underdosing of carbonic-anhydrase inhibitors, benzothiadiazides and other diuretics, initial encounter; F17.210 Nicotine dependence, cigarettes, uncomplicated; Z99.81 Dependence on supplemental oxygen; Z90.710 Acquired absence of both cervix and uterus; Z79.899 Other long term (current) drug therapy; Z79.82 Long term (current) use of aspirin; Z71.6 Tobacco abuse counseling; Z98.51 Tubal ligation status; Z91.14 Patient's other noncompliance with medication regimen; Y92.89 Other specified places as the place of occurrence of the external cause
CPT/HCPCS: 36415; 36600; 71045; 80048; 80053; 80305; 81003; 82375; 82805; 83605; 83880; 84484; 85025; 93005; 94640; 94660; 99291; J1650; J1885; J2405; J2920; J2930; J3105; J3475; J7512

== ENCOUNTER 2021-01-19 15:26 | Emergency (ER) | payer MEDICARE, MEDICAID ==
[~2021-01-19] VITALS: Ht 167.6 cm; Wt 77.0 kg
[~2021-01-19 15:26] MED LIST changes: -ALBU2.5V13 NEB; +BENZ-16 MT; +IPRA3AMP9 HHN; +IPRA3AMP9 NEB; +MED4 MT
[2021-01-19] MEDS ORDERED: ACETAMINOPHEN 325MG TABLET PO STA (16:20)
[2021-01-19] MEDS ORDERED: FAMOTIDINE 20MG/2ML VIAL IV STA (16:22)
[2021-01-19] MEDS ORDERED: MORPHINE SULFATE 4 MG/ML CPJ (NOT FOR IM USE) IV STA (16:22)
[2021-01-19] MEDS ORDERED: MAGNESIUM/ALUMINUM HYDROXIDE/SIMETHICONE 30ML UDC PO ONE (16:30)
[2021-01-19 17:07] LABS: CLARITY URINE CLOUDY (CLEAR); COLOR URINE YELLOW (YELLOW); KETONES URINE NEGATIVE (NEGATIVE); LEUKOCYTE ESTERASE URINE 3+ (NEGATIVE); NITRITE URINE NEGATIVE (NEGATIVE); OCCULT BLOOD URINE TRACE (NEGATIVE); PROTEIN URINE TRACE (NEGATIVE); SPECIFIC GRAVITY URINE 1.012 (1.005-1.030); UROBILINOGEN URINE 0.2 E.U./dL (0.2-1.0)
[2021-01-19 18:14] LABS: RED BLOOD CELL COUNT 4.69 mill/uL (4.2-5.4)
[2021-01-19 18:15] LABS: BASOPHILS % 0.4 % (0.0-2.0); EOSINOPHILS % 0.7 % (0.0-5.0); HEMATOCRIT. 41.9 % (36.0-48.0); LYMPHOCYTES % 13.3 % (20.0-50.0); MEAN CORPUSCULAR HEMOGLOBIN 29.7 pg (28.0-32.0); MEAN CORPUSCULAR VOLUME 89.4 fL (81.0-99.0); MEAN PLATELET VOLUME 8.4 fl (7.4-10.4); MONOCYTES % 10.3 % (2.0-8.0); NEUTROPHILS % 75.3 % (40.0-76.0); PLATELET 232 x1000/uL (130-400); RED CELL DISTRIBUTION WIDTH 13.9 % (11.6-14.6)
[2021-01-19] MEDS ORDERED: CEFTRIAXONE 1 G PREMIX 50 ML IV ONE (18:15)
[2021-01-19 18:20] LABS: CHLORIDE 105 mEq/L (98-107)
[2021-01-19] MEDS ORDERED: KETOROLAC 15MG/ML VIAL IV ONE (18:30)
[2021-01-19] MEDS ORDERED: METRONIDAZOLE 500 MG PREMIX 100 ML IV ONE (18:45)
[2021-01-19] MEDS ORDERED: SODIUM CHLORIDE 0.9% 1,000 ML IV ONE (18:45)
[2021-01-19] MEDS ORDERED: CIPR-263 MT (20:33)
[2021-01-19] MEDS ORDERED: HYDR-4001 MT (20:33)
[2021-01-19] MEDS ORDERED: METR375C2 MT (20:33)
[2021-01-19 20:51] VITALS: BP 133/75
== END 2021-01-19 20:20 | disposition left against medical advice (07) ==
LOC: ER 15:26 → EDBEDREQ 19:46 → EDBEDREQTM 19:46 → ENRESERV 20:12 → CANRESERV 20:12 → ER 20:20 → CANBEDREQ 23:08
DX: K81.0 Acute cholecystitis (principal); I11.0 Hypertensive heart disease with heart failure; I50.9 Heart failure, unspecified; J44.9 Chronic obstructive pulmonary disease, unspecified; M19.90 Unspecified osteoarthritis, unspecified site; F41.9 Anxiety disorder, unspecified; I25.10 Atherosclerotic heart disease of native coronary artery without angina pectoris; I25.2 Old myocardial infarction; F17.210 Nicotine dependence, cigarettes, uncomplicated
CPT/HCPCS: 36415; 71045; 76705; 80053; 81003; 83690; 84484; 85025; 87077; 87086; 87186; 96365; 96375; 99285; J0696; J1885; J2270; J3490; J7030

== ENCOUNTER 2021-04-16 09:42 | Emergency (ER) | payer MEDICARE, MEDICAID ==
[~2021-04-16] VITALS: Ht 167.6 cm; Wt 82.0 kg
[~2021-04-16 09:42] MED LIST changes: -AMLO5TAB88 PO; +HYDR-4001 MT; -IPRA3AMP9 NEB; -LISI1TAB13 PO; -MED4 MT; -METH4TAB17 PO; -NICO-645 TP; -NICO-681 TD; -NICO1PAT15 TD
[2021-04-16] MEDS ORDERED: MORPHINE SULFATE 4 MG/ML CPJ (NOT FOR IM USE) IV ONE ×2 (10:30→12:15)
[2021-04-16 10:36] LABS: BASOPHILS % 0.5 % (0.0-2.0); EOSINOPHILS % 1.3 % (0.0-5.0); HEMATOCRIT. 42.5 % (36.0-48.0); HEMOGLOBIN. 13.8 g/dL (12.0-16.0); LYMPHOCYTES % 18.2 % (20.0-50.0); MEAN CORPUSCULAR HEMOGLOBIN 28.6 pg (28.0-32.0); MEAN CORPUSCULAR VOLUME 88.3 fL (81.0-99.0); MEAN PLATELET VOLUME 8.6 fl (7.4-10.4); MONOCYTES % 8.3 % (2.0-8.0); NEUTROPHILS % 71.7 % (40.0-76.0); PLATELET 293 x1000/uL (130-400); RED BLOOD CELL COUNT 4.81 mill/uL (4.2-5.4)
[2021-04-16 10:42] LABS: CHLORIDE 104 mEq/L (98-107)
[2021-04-16] MEDS ORDERED: ACET-2708 MT (13:04)
[2021-04-16] MEDS ORDERED: IBUP-2028 MT (13:04)
[2021-04-16] MEDS ORDERED: MORP15TA67 MT (13:11)
[2021-04-16 13:25] VITALS: BP 142/72
== END 2021-04-16 14:00 | disposition home or self-care (01) ==
LOC: ER 09:42
DX: K80.20 Calculus of gallbladder without cholecystitis without obstruction (principal); F41.9 Anxiety disorder, unspecified; J44.9 Chronic obstructive pulmonary disease, unspecified; F32.A Depression, unspecified; I10 Essential (primary) hypertension; F17.210 Nicotine dependence, cigarettes, uncomplicated; Z79.82 Long term (current) use of aspirin
CPT/HCPCS: 36415; 76700; 80053; 82248; 83690; 85025; 86850; 86900; 86901; 93005; 96374; 96376; 99285; J2270; 80076

== ENCOUNTER 2022-03-22 21:30 | Inpatient (IN) | payer MEDICARE, MEDICAID ==
[~2022-03-22] VITALS: Ht 170.2 cm; Wt 87.1 kg
[~2022-03-22 21:30] MED LIST changes: +ACET-2708 MT; +IBUP-2028 MT; +MORP15TA67 MT; -OMEP20TA2 PO; +OMEP20TA23 PO
[2022-03-22] MEDS ORDERED: ALBUTEROL (0.083%) 2.5MG/3ML NEB HHN NR (23:43)
[2022-03-22] MEDS ORDERED: IPRATROPIUM BROMIDE (0.02%) 0.5MG/2.5ML NEB HHN NR (23:43)
[2022-03-22] MEDS ORDERED: KETOROLAC 30MG/ML VIAL IV NR (23:43)
[2022-03-22 23:55] LABS: BASOPHILS % 0.7 % (0.0-2.0); EOSINOPHILS % 2.4 % (0.0-5.0); HEMATOCRIT. 41.1 % (36.0-48.0); HEMOGLOBIN. 13.2 g/dL (12.0-16.0); LYMPHOCYTES % 18.3 % (20.0-50.0); MEAN CORPUSCULAR HEMOGLOBIN 28.4 pg (28.0-32.0); MEAN CORPUSCULAR VOLUME 88.2 fL (81.0-99.0); MEAN PLATELET VOLUME 9.1 fl (7.4-10.4); MONOCYTES % 5.3 % (2.0-8.0); NEUTROPHILS % 73.3 % (40.0-76.0); PLATELET 246 x1000/uL (130-400); RED BLOOD CELL COUNT 4.66 mill/uL (4.2-5.4); RED CELL DISTRIBUTION WIDTH 14.4 % (11.6-14.6)
[2022-03-22 23:57] LABS: CHLORIDE 108 mEq/L (98-107)
[2022-03-23] MEDS: METHYLPREDNISOLONE SOD SUCC 125 MG/2 ML VIAL IV NR ×4 (00:01→00:03)
[2022-03-23 08:40] VITALS: BP 113/80
[2022-03-23] MEDS ORDERED: ACETAMINOPHEN 325MG TABLET PO PRN (09:45)
[2022-03-23] MEDS ORDERED: IPRATROPIUM/ALBUTEROL 0.5-3(2.5)MG/3ML NEB HHN PRN (09:45)
[2022-03-23] MEDS ORDERED: ONDANSETRON HCL 4MG/2ML INJ IV PRN (09:45)
[2022-03-23] MEDS ORDERED: CLONIDINE 0.1MG TABLET PO PRN (09:45)
[2022-03-23] MEDS ORDERED: MAGNESIUM/ALUMINUM HYDROXIDE/SIMETHICONE 30ML UDC PO PRN (09:45)
[2022-03-23] MEDS: ENOXAPARIN 40MG/0.4ML SYR SUBCUT SCH (10:08)
[2022-03-23] MEDS: HYDROCODONE/ACETAMINOPHEN 5/325MG TABLET PO PRN ×2 (10:19→20:07)
[2022-03-23 12:00] VITALS: BP 131/52
[2022-03-23] MEDS: IPRATROPIUM/ALBUTEROL 0.5-3(2.5)MG/3ML NEB HHN SCH ×3 (13:04→21:37)
[2022-03-23] MEDS: METHYLPREDNISOLONE SOD SUCC 125 MG/2 ML VIAL IV SCH ×2 (13:13→21:21)
[2022-03-23 16:00] VITALS: BP 122/50
[2022-03-23 18:45] LABS: CLARITY URINE CLEAR (CLEAR); COLOR URINE YELLOW (YELLOW); KETONES URINE NEGATIVE (NEGATIVE); LEUKOCYTE ESTERASE URINE NEGATIVE (NEGATIVE); NITRITE URINE NEGATIVE (NEGATIVE); OCCULT BLOOD URINE NEGATIVE (NEGATIVE); PH URINE 5.5 (4.5-8.0); PROTEIN URINE NEGATIVE (NEGATIVE); SPECIFIC GRAVITY URINE 1.017 (1.005-1.030); UROBILINOGEN URINE 0.2 E.U./dL (0.2-1.0)
[2022-03-23] MEDS ORDERED: POTASSIUM CHLORIDE 20MEQ TABLET SR PO NR (19:09)
[2022-03-23 19:24] LABS: *AMPHETAMINES SCREEN URINE NEGATIVE (NEGATIVE); *BARBITURATES SCREEN URINE NEGATIVE (NEGATIVE); *BENZODIAZEPINES SCREEN URINE NEGATIVE (NEGATIVE); *COCAINE SCREEN URINE NEGATIVE (NEGATIVE); CANNABINOID URINE SCREEN NEGATIVE (NEGATIVE); METHADONE URINE SCREEN NEGATIVE (NEGATIVE); OPIATES URINE SCREEN PRESUMTIVE POSITIVE (NEGATIVE); PHENCYCLIDINE URINE SCREEN NEGATIVE (NEGATIVE)
[2022-03-23 20:00] VITALS: BP 123/62
[2022-03-24] VITALS: BP 118/58
[2022-03-24] MEDS: IPRATROPIUM/ALBUTEROL 0.5-3(2.5)MG/3ML NEB HHN SCH ×6 (00:47→20:51)
[2022-03-24 04:00] VITALS: BP 117/58
[2022-03-24] MEDS: METHYLPREDNISOLONE SOD SUCC 125 MG/2 ML VIAL IV SCH ×3 (05:31→21:27)
[2022-03-24 07:35] LABS: HEMATOCRIT. 37.9 % (36.0-48.0); HEMOGLOBIN. 12.2 g/dL (12.0-16.0); MEAN CORPUSCULAR HEMOGLOBIN 28.5 pg (28.0-32.0); MEAN CORPUSCULAR VOLUME 88.5 fL (81.0-99.0); PLATELET 215 x1000/uL (130-400); RED BLOOD CELL COUNT 4.29 mill/uL (4.2-5.4); RED CELL DISTRIBUTION WIDTH 14.6 % (11.6-14.6)
[2022-03-24] MEDS: OMEPRAZOLE 20MG CAPSULE EXTENDED RELEASE PO SCH (07:54)
[2022-03-24 07:59] LABS: CHLORIDE 109 mEq/L (98-107)
[2022-03-24 08:00] VITALS: BP 123/63
[2022-03-24 08:20] LABS: HDL CHOLESTEROL 68 mg/dL (40-59); LDL CHOLESTEROL 104 mg/dL (5-100); PHOSPHORUS 2.6 mg/dL (2.5-4.9); T4 FREE 0.81 ng/dL (0.76-1.46)
[2022-03-24] MEDS: HYDROCODONE/ACETAMINOPHEN 5/325MG TABLET PO PRN ×2 (08:26→17:53)
[2022-03-24] MEDS: ENOXAPARIN 40MG/0.4ML SYR SUBCUT SCH (10:53)
[2022-03-24 12:00] VITALS: BP 122/77
[2022-03-24 16:00] VITALS: BP 125/58
[2022-03-24] MEDS ORDERED: NALOXONE HCL 0.4MG/ML VIAL IV PRN (17:00)
[2022-03-24 20:00] VITALS: BP 124/50
[2022-03-25] VITALS: BP 119/50
[2022-03-25] MEDS: IPRATROPIUM/ALBUTEROL 0.5-3(2.5)MG/3ML NEB HHN SCH ×6 (00:44→20:45)
[2022-03-25 04:00] VITALS: BP 117/56
[2022-03-25] MEDS: METHYLPREDNISOLONE SOD SUCC 125 MG/2 ML VIAL IV SCH ×3 (05:31→22:44)
[2022-03-25] MEDS: OMEPRAZOLE 20MG CAPSULE EXTENDED RELEASE PO SCH (06:21)
[2022-03-25] MEDS ORDERED: FAMOTIDINE 20MG TABLET PO SCH (07:10)
[2022-03-25 08:00] VITALS: BP 132/42
[2022-03-25 08:00] LABS: HEMATOCRIT. 36.4 % (36.0-48.0); HEMOGLOBIN. 11.8 g/dL (12.0-16.0); MEAN CORPUSCULAR HEMOGLOBIN 28.9 pg (28.0-32.0); MEAN CORPUSCULAR VOLUME 88.9 fL (81.0-99.0); MEAN PLATELET VOLUME 9.3 fl (7.4-10.4); PLATELET 219 x1000/uL (130-400); RED BLOOD CELL COUNT 4.09 mill/uL (4.2-5.4); RED CELL DISTRIBUTION WIDTH 14.5 % (11.6-14.6)
[2022-03-25 08:36] LABS: CHLORIDE 109 mEq/L (98-107)
[2022-03-25 08:48] LABS: PHOSPHORUS 2.1 mg/dL (2.5-4.9)
[2022-03-25] MEDS: ENOXAPARIN 40MG/0.4ML SYR SUBCUT SCH (09:51)
[2022-03-25] MEDS: HYDROCODONE/ACETAMINOPHEN 5/325MG TABLET PO PRN ×2 (09:52→17:08)
[2022-03-25 11:44] LABS: BG BASE EXCESS -1.5 mmol/L (-2.0-2.0); BG CARBOXYHEMOGLOBIN 0.2 % (0.5-1.5); BG HCO3 ACT 24.2 mmol/L (22.0-26.0); BG OXYHEMOGLOBIN 91.8 % (94.0-97.0); BG PCO2 44.6 mmHg (35.0-45.0); BG PH 7.353 (7.350-7.450); BG PO2 59.1 mmHg (75.0-100.0); BG SAMPLE SITE RIGHT RADIAL; BG TOTAL HEMOGLOBIN 12.7 g/dL (12.0-18.0); BG VENT MODE ROOM AIR
[2022-03-25 11:45] VITALS: BP 115/43
[2022-03-25 13:46] LABS: PLATELET ESTIMATE NORMAL
[2022-03-25 14:38] LABS: PLATELET ESTIMATE NORMAL
[2022-03-25 16:00] VITALS: BP 137/77
[2022-03-25 20:00] VITALS: BP 124/52
[2022-03-26] VITALS (7 sets, daily range): BP systolic 124–160; BP diastolic 42–100
[2022-03-26] MEDS: IPRATROPIUM/ALBUTEROL 0.5-3(2.5)MG/3ML NEB HHN SCH ×6 (00:30→20:48)
[2022-03-26] MEDS: METHYLPREDNISOLONE SOD SUCC 125 MG/2 ML VIAL IV SCH ×2 (05:40→14:03)
[2022-03-26 07:40] LABS: HEMATOCRIT. 37.9 % (36.0-48.0); HEMOGLOBIN. 12.4 g/dL (12.0-16.0); MEAN CORPUSCULAR HEMOGLOBIN 29.1 pg (28.0-32.0); MEAN CORPUSCULAR VOLUME 89.2 fL (81.0-99.0); MEAN PLATELET VOLUME 9.2 fl (7.4-10.4); PLATELET 218 x1000/uL (130-400); RED BLOOD CELL COUNT 4.25 mill/uL (4.2-5.4); RED CELL DISTRIBUTION WIDTH 14.5 % (11.6-14.6)
[2022-03-26] MEDS: OMEPRAZOLE 20MG CAPSULE EXTENDED RELEASE PO SCH (08:14)
[2022-03-26] MEDS: ENOXAPARIN 40MG/0.4ML SYR SUBCUT SCH (09:24)
[2022-03-26] MEDS: HYDROCODONE/ACETAMINOPHEN 5/325MG TABLET PO PRN ×2 (09:25→17:42)
[2022-03-26 09:36] LABS: CHLORIDE 107 mEq/L (98-107)
[2022-03-26 10:58] LABS: NUCLEATED RED BLOOD CELLS 1 /100 WBC; PLATELET ESTIMATE NORMAL
[2022-03-26] MEDS ORDERED: BUDE6HFA IH (17:02)
[2022-03-26] MEDS ORDERED: MED4 MT (17:02)
[2022-03-26] MEDS ORDERED: ALBU18HF2 INH (17:02)
== END 2022-03-26 21:26 | disposition home or self-care (01) | DRG 140 ==
LOC: ER 21:30 → 8WST 03-23 03:23 → ENRESERV 03-23 05:24
PROVIDERS: ADMIT Internal Medicine; ATTEND Internal Medicine
DX: J44.1 Chronic obstructive pulmonary disease with (acute) exacerbation (principal); J96.01 Acute respiratory failure with hypoxia; E87.6 Hypokalemia; Z99.81 Dependence on supplemental oxygen; F17.210 Nicotine dependence, cigarettes, uncomplicated; Z20.822 Contact with and (suspected) exposure to COVID-19; I10 Essential (primary) hypertension; F32.A Depression, unspecified; F41.9 Anxiety disorder, unspecified; Z82.49 Family history of ischemic heart disease and other diseases of the circulatory system; Z79.899 Other long term (current) drug therapy; Z71.6 Tobacco abuse counseling
CPT/HCPCS: 36415; 36600; 71045; 80048; 80053; 80061; 80076; 80305; 81003; 82375; 82805; 83735; 83880; 84100; 84439; 84443; 84484; 85025; 87426; 93005; 93970; 94640; 97162; 99285; J1650; J1885; J2930

== ENCOUNTER 2022-05-21 07:51 | Emergency (ER) | payer MEDICARE, MEDICAID ==
[~2022-05-21] VITALS: Ht 170.2 cm; Wt 86.0 kg
[~2022-05-21 07:51] MED LIST changes: -FAMO20TA8 PO; -FLUT1DIS3 IH; +MED4 MT; -MORP15TA67 MT
[2022-05-21] MEDS ORDERED: METHYLPREDNISOLONE SOD SUCC 125 MG/2 ML VIAL IV STA (08:06)
[2022-05-21] MEDS ORDERED: IPRATROPIUM BROMIDE (0.02%) 0.5MG/2.5ML NEB HHN STA (08:06)
[2022-05-21] MEDS ORDERED: ALBUTEROL (0.083%) 2.5MG/3ML NEB HHN STA (08:06)
[2022-05-21 09:11] LABS: BG CARBOXYHEMOGLOBIN 2.7 % (0.5-1.5); BG DEOXYHEMOGLOBIN 2.6 % (0.0-5.0); BG HCO3 ACT 27.1 mmol/L (22.0-26.0); BG METHEMOGLOBIN 0.3 % (0.0-1.5); BG OXYGEN SATURATION 97.3 % (92.0-98.5); BG OXYHEMOGLOBIN 94.4 % (94.0-97.0); BG PCO2 59.9 mmHg (35.0-45.0); BG PH 7.274 (7.350-7.450); BG PO2 96.8 mmHg (75.0-100.0); BG SAMPLE SITE RIGHT RADIAL; BG TOTAL HEMOGLOBIN 14.2 g/dL (12.0-18.0); BG VENT MODE HHN TX
[2022-05-21 09:51] LABS: CHLORIDE 110 mEq/L (98-107)
[2022-05-21 09:54] LABS: BASOPHILS % 0.3 % (0.0-2.0); EOSINOPHILS % 0.7 % (0.0-5.0); HEMATOCRIT. 42.4 % (36.0-48.0); HEMOGLOBIN. 13.6 g/dL (12.0-16.0); LYMPHOCYTES % 11.4 % (20.0-50.0); MEAN CORPUSCULAR HEMOGLOBIN 28.8 pg (28.0-32.0); MEAN CORPUSCULAR VOLUME 90.2 fL (81.0-99.0); MEAN PLATELET VOLUME 8.7 fl (7.4-10.4); MONOCYTES % 6.8 % (2.0-8.0); NEUTROPHILS % 80.8 % (40.0-76.0); PLATELET 218 x1000/uL (130-400); RED BLOOD CELL COUNT 4.71 mill/uL (4.2-5.4); RED CELL DISTRIBUTION WIDTH 14.4 % (11.6-14.6)
[2022-05-21 09:59] LABS: ETHANOL BLOOD < 10 mg/dL
[2022-05-21] MEDS ORDERED: ALBU6.7H3 INH (11:00)
[2022-05-21] MEDS ORDERED: ALBUTEROL (0.5%) 2.5MG/0.5ML NEB HHN ONE (11:00)
[2022-05-21] MEDS ORDERED: PRED10TA MT (11:00)
[2022-05-21 11:15] VITALS: BP 135/81
[2022-05-21 11:20] LABS: CLARITY URINE CLEAR (CLEAR); COLOR URINE YELLOW (YELLOW); KETONES URINE NEGATIVE (NEGATIVE); LEUKOCYTE ESTERASE URINE NEGATIVE (NEGATIVE); NITRITE URINE NEGATIVE (NEGATIVE); OCCULT BLOOD URINE NEGATIVE (NEGATIVE); PROTEIN URINE NEGATIVE (NEGATIVE); SPECIFIC GRAVITY URINE 1.014 (1.005-1.030); UROBILINOGEN URINE 0.2 E.U./dL (0.2-1.0)
[2022-05-21 11:47] LABS: *AMPHETAMINES SCREEN URINE NEGATIVE (NEGATIVE); *BARBITURATES SCREEN URINE NEGATIVE (NEGATIVE); *BENZODIAZEPINES SCREEN URINE NEGATIVE (NEGATIVE); *COCAINE SCREEN URINE NEGATIVE (NEGATIVE); CANNABINOID URINE SCREEN NEGATIVE (NEGATIVE); METHADONE URINE SCREEN NEGATIVE (NEGATIVE); OPIATES URINE SCREEN PRESUMTIVE POSITIVE (NEGATIVE); PHENCYCLIDINE URINE SCREEN NEGATIVE (NEGATIVE)
== END 2022-05-21 11:47 | disposition home or self-care (01) ==
LOC: ER 08:06
DX: J44.1 Chronic obstructive pulmonary disease with (acute) exacerbation (principal); F41.9 Anxiety disorder, unspecified; F32.9 Major depressive disorder, single episode, unspecified; E11.9 Type 2 diabetes mellitus without complications; I10 Essential (primary) hypertension; F17.200 Nicotine dependence, unspecified, uncomplicated; Z79.899 Other long term (current) drug therapy
CPT/HCPCS: 36415; 36600; 71045; 80053; 80305; 80320; 81003; 82375; 82805; 83605; 83690; 83880; 84484; 85025; 93005; 94640; 96374; 99285; J2930; Z7610; G0480

== ENCOUNTER 2022-09-07 20:38 | Emergency (ER) | payer MEDICARE, MEDICAID ==
[~2022-09-07] VITALS: Ht 165.1 cm; Wt 119.0 kg
[~2022-09-07 20:38] MED LIST changes: +ALBU6.7H3 INH; +PRED10TA MT
[2022-09-07] MEDS ORDERED: ALBUTEROL (0.083%) 2.5MG/3ML NEB HHN STA (20:43)
[2022-09-07] MEDS ORDERED: METHYLPREDNISOLONE SOD SUCC 125 MG/2 ML VIAL IV STA (20:43)
[2022-09-07] MEDS ORDERED: IPRATROPIUM BROMIDE (0.02%) 0.5MG/2.5ML NEB HHN STA (20:43)
[2022-09-07] MEDS ORDERED: ONDANSETRON HCL 4MG/2ML INJ IV STA (20:43)
[2022-09-07] MEDS ORDERED: FAMOTIDINE 20MG/2ML VIAL IV ONE (20:45)
[2022-09-07 20:48] VITALS: BP 166/88
[2022-09-07] MEDS ORDERED: AZITHROMYCIN 500 MG in DEXT 5% WATER 250 ML IV SCH (21:00)
[2022-09-07] MEDS ORDERED: ONDANSETRON HCL 4MG/2ML INJ IV NR (21:15)
[2022-09-07] MEDS ORDERED: METHYLPREDNISOLONE SOD SUCC 125 MG/2 ML VIAL IV NR (21:15)
[2022-09-07] MEDS ORDERED: FAMOTIDINE 20MG/2ML VIAL IV NR (21:15)
[2022-09-07] MEDS ORDERED: AZITHROMYCIN 500MG/250ML 250 ML IV NR (21:15)
[2022-09-07 21:53] LABS: BASOPHILS % 0.8 % (0.0-2.0); EOSINOPHILS % 2.5 % (0.0-5.0); HEMATOCRIT. 41.4 % (36.0-48.0); HEMOGLOBIN. 13.3 g/dL (12.0-16.0); LYMPHOCYTES % 15.4 % (20.0-50.0); MEAN CORPUSCULAR HEMOGLOBIN 28.1 pg (28.0-32.0); MEAN CORPUSCULAR VOLUME 87.3 fL (81.0-99.0); MEAN PLATELET VOLUME 8.8 fl (7.4-10.4); MONOCYTES % 8.3 % (2.0-8.0); PLATELET 253 x1000/uL (130-400); RED BLOOD CELL COUNT 4.73 mill/uL (4.2-5.4); RED CELL DISTRIBUTION WIDTH 14.6 % (11.6-14.6)
[2022-09-07 22:05] LABS: CHLORIDE 106 mEq/L (98-107)
[2022-09-07] MEDS ORDERED: CETIRIZINE 10MG TABLET PO SCH (23:00)
[2022-09-07] MEDS ORDERED: DIPHENHYDRAMINE 50MG/ML VIAL IV ONE (23:00)
[2022-09-07] MEDS ORDERED: DEXT15LI MT (23:04)
[2022-09-07] MEDS ORDERED: LEVO750T68 MT (23:04)
[2022-09-07] MEDS ORDERED: ALBU6.7H3 INH (23:04)
[2022-09-07] MEDS ORDERED: BUDE6HFA IH (23:04)
== END 2022-09-08 00:41 | disposition home or self-care (01) ==
LOC: ER 20:38
DX: R06.02 Shortness of breath (principal); R00.0 Tachycardia, unspecified; F41.9 Anxiety disorder, unspecified; J44.9 Chronic obstructive pulmonary disease, unspecified; F32.9 Major depressive disorder, single episode, unspecified; E11.9 Type 2 diabetes mellitus without complications; I10 Essential (primary) hypertension
CPT/HCPCS: 36415; 71045; 80053; 85025; 94644; 94660; 96365; 96375; 99285; J0456; J2405; J2930; J3490; J1200; J7060

== ENCOUNTER 2022-09-10 16:17 | Emergency (ER) | payer MEDICARE, MEDICAID ==
[~2022-09-10] VITALS: Ht 170.2 cm; Wt 105.0 kg
[~2022-09-10 16:17] MED LIST changes: +DEXT15LI MT; +LEVO750T68 MT
[2022-09-10] MEDS ORDERED: ALBUTEROL (0.083%) 2.5MG/3ML NEB HHN STA (17:04)
[2022-09-10] MEDS ORDERED: METHYLPREDNISOLONE SOD SUCC 125 MG/2 ML VIAL IV STA (17:04)
[2022-09-10] MEDS ORDERED: IPRATROPIUM BROMIDE (0.02%) 0.5MG/2.5ML NEB HHN STA (17:04)
[2022-09-10] MEDS ORDERED: ONDANSETRON HCL 4MG/2ML INJ IV ONE (17:30)
[2022-09-10 17:36] LABS: BASOPHILS % 0.5 % (0.0-2.0); EOSINOPHILS % 0.6 % (0.0-5.0); HEMATOCRIT. 42.6 % (36.0-48.0); HEMOGLOBIN. 13.8 g/dL (12.0-16.0); LYMPHOCYTES % 24.1 % (20.0-50.0); MEAN CORPUSCULAR HEMOGLOBIN 28.8 pg (28.0-32.0); MEAN CORPUSCULAR VOLUME 88.7 fL (81.0-99.0); MEAN PLATELET VOLUME 8.2 fl (7.4-10.4); MONOCYTES % 14.6 % (2.0-8.0); NEUTROPHILS % 60.2 % (40.0-76.0); PLATELET 201 x1000/uL (130-400); RED CELL DISTRIBUTION WIDTH 14.8 % (11.6-14.6)
[2022-09-10 17:38] LABS: CHLORIDE 105 mEq/L (98-107)
[2022-09-10 18:30] VITALS: BP 114/60
[2022-09-10] MEDS ORDERED: P50 MT (18:34)
[2022-09-10] MEDS ORDERED: ALBU6.7H3 INH (18:36)
== END 2022-09-10 18:52 | disposition home or self-care (01) ==
LOC: ER 16:17
DX: R06.02 Shortness of breath (principal); R07.9 Chest pain, unspecified; J45.909 Unspecified asthma, uncomplicated; F32.A Depression, unspecified; F41.9 Anxiety disorder, unspecified; E11.9 Type 2 diabetes mellitus without complications; I10 Essential (primary) hypertension
CPT/HCPCS: 36415; 71045; 80053; 83880; 84484; 85025; 93005; 94640; 96374; 96375; 99285; J2405; J2930

== ENCOUNTER 2022-10-17 14:09 | Emergency (ER) | payer MEDICARE, MEDICAID ==
[~2022-10-17] VITALS: Ht 160 cm; Wt 84.0 kg
[~2022-10-17 14:09] MED LIST changes: +P50 MT
[2022-10-17] MEDS ORDERED: METHYLPREDNISOLONE SOD SUCC 125 MG/2 ML VIAL IV ONE (15:15)
[2022-10-17] MEDS ORDERED: IPRATROPIUM/ALBUTEROL 0.5-3(2.5)MG/3ML NEB HHN ONE (15:15)
[2022-10-17] MEDS ORDERED: ONDANSETRON HCL 4MG/2ML INJ IV ONE (15:30)
[2022-10-17 15:59] LABS: BASOPHILS % 0.5 % (0.0-2.0); EOSINOPHILS % 0.7 % (0.0-5.0); HEMATOCRIT. 40.9 % (36.0-48.0); HEMOGLOBIN. 13.1 g/dL (12.0-16.0); LYMPHOCYTES % 20.7 % (20.0-50.0); MEAN CORPUSCULAR HEMOGLOBIN 28.7 pg (28.0-32.0); MEAN CORPUSCULAR VOLUME 89.7 fL (81.0-99.0); MEAN PLATELET VOLUME 8.1 fl (7.4-10.4); MONOCYTES % 7.7 % (2.0-8.0); NEUTROPHILS % 70.4 % (40.0-76.0); PLATELET 260 x1000/uL (130-400); RED BLOOD CELL COUNT 4.56 mill/uL (4.2-5.4); RED CELL DISTRIBUTION WIDTH 15.4 % (11.6-14.6)
[2022-10-17 16:01] LABS: CHLORIDE 110 mEq/L (98-107)
[2022-10-17] MEDS ORDERED: POLY17PO3 PO (16:57)
[2022-10-17] MEDS ORDERED: P50 MT (16:57)
[2022-10-17 17:00] VITALS: BP 130/89
[2022-10-17] MEDS ORDERED: HYDROCODONE/ACETAMINOPHEN 5/325MG TABLET PO ONE (17:00)
[2022-10-17] MEDS ORDERED: HYDR-4001 MT (17:18)
== END 2022-10-17 17:31 | disposition home or self-care (01) ==
LOC: ER 14:09
DX: J44.1 Chronic obstructive pulmonary disease with (acute) exacerbation (principal); K59.00 Constipation, unspecified; Z79.899 Other long term (current) drug therapy
CPT/HCPCS: 36415; 71045; 80053; 83880; 84484; 85025; 93005; 94640; 96374; 96375; 99285; J2405; J2930; Z7610

== ENCOUNTER 2022-11-07 23:15 | Emergency (ER) | payer MEDICARE, MEDICAID ==
[~2022-11-07] VITALS: Ht 162.6 cm; Wt 90.0 kg
[~2022-11-07 23:15] MED LIST changes: +POLY17PO3 PO
[2022-11-08] MEDS ORDERED: METHYLPREDNISOLONE SOD SUCC 125MG/2ML (ACT-O-VIAL) IV STA (00:20)
[2022-11-08] MEDS ORDERED: ALBUTEROL (0.083%) 2.5MG/3ML NEB HHN STA (00:20)
[2022-11-08] MEDS ORDERED: IPRATROPIUM BROMIDE (0.02%) 0.5MG/2.5ML NEB HHN STA (00:20)
[2022-11-08 01:01] VITALS: PULSE 93; RESP 20; O2SAT 99
[2022-11-08 01:02] LABS: BASOPHILS % 0.7 % (0.0-2.0); EOSINOPHILS % 1.6 % (0.0-5.0); HEMATOCRIT. 39.7 % (36.0-48.0); HEMOGLOBIN. 12.8 g/dL (12.0-16.0); LYMPHOCYTES % 23.4 % (20.0-50.0); MEAN CORPUSCULAR HEMOGLOBIN 28.4 pg (28.0-32.0); MEAN PLATELET VOLUME 8.9 fl (7.4-10.4); MONOCYTES % 7.4 % (2.0-8.0); NEUTROPHILS % 66.9 % (40.0-76.0); PLATELET 251 x1000/uL (130-400); RED BLOOD CELL COUNT 4.51 mill/uL (4.2-5.4); RED CELL DISTRIBUTION WIDTH 15.4 % (11.6-14.6)
[2022-11-08 01:08] LABS: CHLORIDE 107 mEq/L (98-107)
[2022-11-08] MEDS ORDERED: ONDANSETRON HCL 4MG/2ML INJ IV ONE (02:00)
[2022-11-08] MEDS ORDERED: DEXT30SU17 MT (02:59)
[2022-11-08] MEDS ORDERED: VARE1TAB22 MT (02:59)
[2022-11-08] MEDS ORDERED: IPRA3AMP9 HHN (02:59)
[2022-11-08] MEDS ORDERED: ACET-2708 MT (02:59)
[2022-11-08] MEDS ORDERED: P50 MT (02:59)
[2022-11-08 03:00] VITALS: BP 121/57; PULSE 79; RESP 20; TEMP 98.6
== END 2022-11-08 03:05 | disposition home or self-care (01) ==
LOC: ER 23:15
DX: R06.02 Shortness of breath (principal); I10 Essential (primary) hypertension; E11.9 Type 2 diabetes mellitus without complications; J44.1 Chronic obstructive pulmonary disease with (acute) exacerbation; J45.909 Unspecified asthma, uncomplicated; Z79.82 Long term (current) use of aspirin; Z79.899 Other long term (current) drug therapy
CPT/HCPCS: 99285; 80053; 83880; 85025; 84484; 36415; 71045; 94640; 93005; 96374; 96375; Z7610 ×5; J2930; J2405

== ENCOUNTER 2022-11-12 18:15 | Emergency (ER) | payer MEDICARE, MEDICAID ==
[~2022-11-12] VITALS: Ht 165.1 cm; Wt 80.0 kg
[~2022-11-12 18:15] MED LIST changes: +DEXT30SU17 MT; +VARE1TAB22 MT
[2022-11-12 19:39] LABS: BASOPHILS % 0.5 % (0.0-2.0); EOSINOPHILS % 1.3 % (0.0-5.0); HEMATOCRIT. 43.1 % (36.0-48.0); LYMPHOCYTES % 29.8 % (20.0-50.0); MEAN CORPUSCULAR HEMOGLOBIN 28.7 pg (28.0-32.0); MEAN CORPUSCULAR VOLUME 87.8 fL (81.0-99.0); MONOCYTES % 7.7 % (2.0-8.0); NEUTROPHILS % 60.7 % (40.0-76.0); PLATELET 270 x1000/uL (130-400); RED CELL DISTRIBUTION WIDTH 15.4 % (11.6-14.6)
[2022-11-12] MEDS ORDERED: METHYLPREDNISOLONE SOD SUCC 125MG/2ML (ACT-O-VIAL) IV ONE (19:45)
[2022-11-12] MEDS ORDERED: IPRATROPIUM/ALBUTEROL 0.5-3(2.5)MG/3ML NEB HHN ONE (19:45)
[2022-11-12] MEDS ORDERED: MAGNESIUM/ALUMINUM HYDROXIDE/SIMETHICONE 30ML UDC PO ONE (19:45)
[2022-11-12] MEDS ORDERED: FAMOTIDINE 20MG/2ML VIAL IV ONE (19:45)
[2022-11-12 19:47] LABS: CHLORIDE 106 mEq/L (98-107)
[2022-11-12 20:02] LABS: PROTHROMBIN TIME 10.7 sec (9.6-11.0)
[2022-11-12 20:26] VITALS: PULSE 82; RESP 20; O2SAT 96
[2022-11-12] MEDS ORDERED: HYDROCODONE/ACETAMINOPHEN 5/325MG TABLET PO ONE (20:30)
[2022-11-12] MEDS ORDERED: POTASSIUM CHLORIDE 20MEQ TABLET SR PO ONE (21:30)
[2022-11-12] MEDS ORDERED: MAGNESIUM OXIDE 400MG TABLET PO SCH (21:30)
[2022-11-12 21:54] VITALS: BP 109/80; PULSE 70; RESP 19; TEMP 98.4
[2022-11-12] MEDS ORDERED: P50 MT (21:55)
== END 2022-11-12 22:15 | disposition home or self-care (01) ==
LOC: ER 18:15
DX: J44.1 Chronic obstructive pulmonary disease with (acute) exacerbation (principal); F41.9 Anxiety disorder, unspecified; J45.909 Unspecified asthma, uncomplicated; E11.9 Type 2 diabetes mellitus without complications; I10 Essential (primary) hypertension
CPT/HCPCS: 80053; 83880; 83690; 85025; 85610; 84484; 36415; 71045; 94640; 93005; 96374; 96375; 99285; J3490; J2930; Z7610 ×6

== ENCOUNTER 2022-12-25 14:49 | Emergency (ER) | payer MEDICARE, MEDICAID ==
[~2022-12-25] VITALS: Ht 162.6 cm; Wt 61.0 kg
[2022-12-25 14:56] VITALS: BP 143/77; TEMP 98.2
[2022-12-25] MEDS ORDERED: IPRATROPIUM BROMIDE (0.02%) 0.5MG/2.5ML NEB HHN STA (15:08)
[2022-12-25] MEDS ORDERED: METHYLPREDNISOLONE SOD SUCC 125MG/2ML (ACT-O-VIAL) IV STA (15:08)
[2022-12-25] MEDS ORDERED: ALBUTEROL (0.083%) 2.5MG/3ML NEB HHN STA (15:08)
[2022-12-25] MEDS ORDERED: ALBUTEROL (0.083%) 2.5MG/3ML NEB HHN NR (15:15)
[2022-12-25] MEDS ORDERED: IPRATROPIUM BROMIDE (0.02%) 0.5MG/2.5ML NEB HHN NR (15:15)
[2022-12-25] MEDS ORDERED: METHYLPREDNISOLONE SOD SUCC 125MG VIAL IV NR (15:15)
[2022-12-25 15:34] LABS: BASOPHILS % 0.6 % (0.0-2.0); HEMATOCRIT. 42.8 % (36.0-48.0); HEMOGLOBIN. 13.9 g/dL (12.0-16.0); LYMPHOCYTES % 9.4 % (20.0-50.0); MEAN CORPUSCULAR HEMOGLOBIN 28.3 pg (28.0-32.0); MEAN CORPUSCULAR HGB CONC 32.4 g/dL (31.0-37.0); MEAN CORPUSCULAR VOLUME 87.6 fL (81.0-99.0); MEAN PLATELET VOLUME 8.7 fl (7.4-10.4); MONOCYTES % 4.7 % (2.0-8.0); NEUTROPHILS % 85.3 % (40.0-76.0); PLATELET 250 x1000/uL (130-400); RED BLOOD CELL COUNT 4.89 mill/uL (4.2-5.4); RED CELL DISTRIBUTION WIDTH 15.3 % (11.6-14.6); WHITE BLOOD COUNT 8.2 x1000/uL (4.5-11.0)
[2022-12-25 15:39] LABS: CHLORIDE 103 mEq/L (98-107); INDEX HEMOLYSI 1 (1-3); INDEX ICTERIC 1 (1-4); INDEX LIPEMIC 1 (1-3); POTASSIUM 3.6 mEq/L (3.5-5.1); SODIUM 139 mEq/L (136-145)
[2022-12-25 15:42] LABS: CALCIUM 9.2 mg/dL (8.5-10.1)
[2022-12-25 15:50] LABS: ALANINE AMINOTRANSFERASE 18 IU/L (13-61); ALBUMIN 3.7 g/dL (3.4-5.0); ASPARTATE AMINOTRANSFERASE 10 IU/L (15-37); BILIRUBIN TOTAL 0.4 mg/dL (0.1-1.0); CARBON DIOXIDE 31 mEq/L (21-32); CREATININE 0.7 mg/dL (0.6-1.3); GLUCOSE 110 mg/dL (70-105); NT PRO B-TYPE NATRIURETIC PEP 48 pg/mL (5-125); PROTEIN TOTAL 7.3 g/dL (6.0-8.3); TROPONIN I HIGH SENSITIVITY 5 ng/L (<54); UREA NITROGEN BLOOD 7 mg/dL (7-21)
[2022-12-25 15:51] VITALS: PULSE 73; RESP 18; O2SAT 98
[2022-12-25] MEDS ORDERED: ONDANSETRON HCL 4MG/2ML INJ IV ONE (16:45)
[2022-12-25] MEDS ORDERED: ALBU6.7H3 INH (16:59)
[2022-12-25] MEDS ORDERED: P50 MT (16:59)
== END 2022-12-25 17:44 | disposition home or self-care (01) ==
LOC: ER 14:49
DX: J44.1 Chronic obstructive pulmonary disease with (acute) exacerbation (principal); I10 Essential (primary) hypertension; E11.9 Type 2 diabetes mellitus without complications; Z79.899 Other long term (current) drug therapy
CPT/HCPCS: 80053; 83880; 85025; 84484; 36415; 71045; 94640; 96374; 96375; 99284; J2930; J2405; Z7610 ×5

== ENCOUNTER 2023-03-05 20:23 | Emergency (ER) | payer MEDICARE, OTHER ==
[~2023-03-05] VITALS: Ht 165.1 cm; Wt 68.0 kg
[2023-03-05 20:53] VITALS: BP 144/68; PULSE 125; RESP 20; TEMP 98.4; O2SAT 96
== END 2023-03-05 21:00 | disposition left against medical advice (07) ==
LOC: ER 20:23
DX: R06.02 Shortness of breath (principal); Z53.21 Procedure and treatment not carried out due to patient leaving prior to being seen by health care provider
CPT/HCPCS: 99281

== ENCOUNTER 2023-05-24 18:10 | Emergency (ER) | payer MEDICARE, MEDICAID ==
[~2023-05-24] VITALS: Ht 167.6 cm; Wt 90.0 kg
[2023-05-24 18:20] VITALS: BP 161/72; TEMP 97.7
[2023-05-24] MEDS ORDERED: METHYLPREDNISOLONE SOD SUCC 125MG/2ML (ACT-O-VIAL) IV NR (18:34)
[2023-05-24] MEDS ORDERED: IPRATROPIUM BROMIDE (0.02%) 0.5MG/2.5ML NEB HHN STA (18:46)
[2023-05-24] MEDS ORDERED: METHYLPREDNISOLONE SOD SUCC 125MG/2ML (ACT-O-VIAL) IV STA (18:46)
[2023-05-24] MEDS ORDERED: ASPIRIN 81MG TABLET PO NR (19:00)
[2023-05-24] MEDS ORDERED: ASPIRIN 81MG TABLET PO ONE (19:00)
[2023-05-24] MEDS ORDERED: NITROGLYCERIN 0.4MG TABLET SL SL NR (19:00)
[2023-05-24] MEDS ORDERED: ALBUTEROL (0.083%) 2.5MG/3ML NEB HHN SCH (19:00)
[2023-05-24] MEDS ORDERED: NITROGLYCERIN 0.4MG TABLET SL SL ONE (19:00)
[2023-05-24 19:15] VITALS: PULSE 89; RESP 18; O2SAT 98
[2023-05-24 19:59] LABS: PARTIAL THROMBOPLASTIN TIME 25.6 sec (23.4-31.0); PROTHROMBIN TIME 10.8 sec (9.6-11.0)
[2023-05-24 20:04] LABS: BASOPHILS % 0.5 % (0.0-2.0); HEMATOCRIT. 40.4 % (36.0-48.0); HEMOGLOBIN. 12.8 g/dL (12.0-16.0); LYMPHOCYTES % 13.1 % (20.0-50.0); MEAN CORPUSCULAR HEMOGLOBIN 28.3 pg (28.0-32.0); MEAN CORPUSCULAR HGB CONC 31.8 g/dL (31.0-37.0); MEAN PLATELET VOLUME 9.1 fl (7.4-10.4); MONOCYTES % 6.9 % (2.0-8.0); NEUTROPHILS % 79.5 % (40.0-76.0); PLATELET 222 x1000/uL (130-400); RED BLOOD CELL COUNT 4.54 mill/uL (4.2-5.4); RED CELL DISTRIBUTION WIDTH 14.2 % (11.6-14.6); WHITE BLOOD COUNT 8.6 x1000/uL (4.5-11.0)
[2023-05-24 20:07] LABS: ALANINE AMINOTRANSFERASE 8 IU/L (10-49); ASPARTATE AMINOTRANSFERASE 11 IU/L (<34); BILIRUBIN TOTAL 0.3 mg/dL (0.1-1.0); CALCIUM 9.2 mg/dL (8.7-10.4); CARBON DIOXIDE 32 mEq/L (21-32); CHLORIDE 106 mEq/L (98-107); CREATININE 0.8 mg/dL (0.6-1.0); GLUCOSE 100 mg/dL (70-105); POTASSIUM 3.8 mEq/L (3.5-5.1); PROTEIN TOTAL 6.7 g/dL (6.0-8.3); SODIUM 142 mEq/L (136-145); UREA NITROGEN BLOOD 10 mg/dL (9-23)
[2023-05-24] MEDS ORDERED: ONDANSETRON HCL 4MG/2ML INJ IV NR (20:15)
[2023-05-24] MEDS ORDERED: ONDANSETRON HCL 4MG/2ML INJ IV ONE (20:15)
[2023-05-24 20:32] LABS: TROPONIN I HIGH SENSITIVITY < 4 ng/L (3.0-34)
[2023-05-24] MEDS ORDERED: BUDE6HFA IH (21:11)
[2023-05-24] MEDS ORDERED: FAMO-135 MT (21:11)
[2023-05-24] MEDS ORDERED: P50 MT ×2 (21:11)
[2023-05-24] MEDS ORDERED: ALBU18HF2 INH ×2 (21:11)
[2023-05-24] MEDS ORDERED: DOCU-138 PO (21:11)
[2023-06-03] MEDS ORDERED: POLY17PO3 MT (14:41)
[2023-06-03] MEDS ORDERED: MED4 MT (14:41)
[2023-06-03] MEDS ORDERED: ALBU90AE INH (14:41)
[2023-06-03] MEDS ORDERED: FLUT1BLS3 INH (14:41)
== END 2023-05-24 21:33 | disposition home or self-care (01) ==
LOC: ER 18:10
DX: J44.1 Chronic obstructive pulmonary disease with (acute) exacerbation (principal); I10 Essential (primary) hypertension; Z79.899 Other long term (current) drug therapy
CPT/HCPCS: 80053; 83880; 85025; 85610; 85730; 84484; 36415; 71045; 94640; 93005; 96374; 96375; 99285; Z7610 ×5; J2930; J2405

== ENCOUNTER 2023-06-04 02:04 | Inpatient (IN) | payer MEDICARE, OTHER ==
[~2023-06-04] VITALS: Ht 167.6 cm; Wt 98.0 kg
[2023-06-04] VITALS (8 sets, daily range): BP systolic 117–141; BP diastolic 61–81; PULSE 73–93; RESP 16–19; TEMP 97.8–98.8; O2SAT 97–100
[~2023-06-04 02:04] MED LIST changes: +ALBU90AE INH; +FAMO-135 MT; +FLUT1BLS3 INH; +POLY17PO3 MT
[2023-06-04] MEDS ORDERED: IPRATROPIUM BROMIDE (0.02%) 0.5MG/2.5ML NEB HHN STA (02:14)
[2023-06-04] MEDS ORDERED: PREDNISONE 20MG TABLET PO ONE (02:15)
[2023-06-04 02:57] LABS: HEMATOCRIT. 42.7 % (36.0-48.0); HEMOGLOBIN. 13.7 g/dL (12.0-16.0); MEAN CORPUSCULAR HEMOGLOBIN 27.7 pg (28.0-32.0); MEAN CORPUSCULAR VOLUME 86.5 fL (81.0-99.0); MEAN PLATELET VOLUME 8.8 fl (7.4-10.4); PLATELET 253 x1000/uL (130-400); RED BLOOD CELL COUNT 4.94 mill/uL (4.2-5.4); RED CELL DISTRIBUTION WIDTH 14.3 % (11.6-14.6)
[2023-06-04 03:03] LABS: PROTHROMBIN TIME 10.3 sec (9.6-11.0)
[2023-06-04 03:07] LABS: ALANINE AMINOTRANSFERASE 31 IU/L (10-49); ALBUMIN 4.1 g/dL (3.2-4.8); ASPARTATE AMINOTRANSFERASE 18 IU/L (<34); BILIRUBIN TOTAL 0.4 mg/dL (0.1-1.0); CALCIUM 9.3 mg/dL (8.7-10.4); CARBON DIOXIDE 37 mEq/L (21-32); CHLORIDE 99 mEq/L (98-107); CREATININE 0.8 mg/dL (0.6-1.0); GLUCOSE 108 mg/dL (70-105); POTASSIUM 4.1 mEq/L (3.5-5.1); PROTEIN TOTAL 6.2 g/dL (6.0-8.3); SODIUM 139 mEq/L (136-145); TROPONIN I HIGH SENSITIVITY 9 ng/L (3.0-34); UREA NITROGEN BLOOD 14 mg/dL (9-23)
[2023-06-04 03:20] LABS: DIFFERENTIAL COMMENT 1
[2023-06-04] MEDS ORDERED: IPRATROPIUM BROMIDE (0.02%) 0.5MG/2.5ML NEB ONE (04:04)
[2023-06-04] MEDS: ALBUTEROL (0.083%) 2.5MG/3ML NEB HHN SCH (04:08)
[2023-06-04] MEDS ORDERED: PREDNISONE 20MG TABLET PO NR (04:15)
[2023-06-04 05:13] LABS: PLATELET ESTIMATE NORMAL
[2023-06-04] MEDS ORDERED: AZITHROMYCIN 500MG/250ML 250 ML IV NR (05:15)
[2023-06-04] MEDS ORDERED: CEFTRIAXONE 1GM PREMIX 50 ML IV NR (05:15)
[2023-06-04] MEDS ORDERED: ASPIRIN 325MG EC TABLET PO NR (05:15)
[2023-06-04 05:56] LABS: TROPONIN I HIGH SENSITIVITY 9 ng/L (3.0-34)
[2023-06-04] MEDS ORDERED: NITROGLYCERIN 0.4MG TABLET SL SL PRN (08:45)
[2023-06-04] MEDS ORDERED: DOCUSATE SODIUM 100MG CAPSULE PO PRN (08:45)
[2023-06-04] MEDS ORDERED: CLONIDINE 0.1MG TABLET PO PRN (08:45)
[2023-06-04] MEDS ORDERED: MAGNESIUM/ALUMINUM HYDROXIDE/SIMETHICONE 30ML UDC PO PRN (08:45)
[2023-06-04] MEDS ORDERED: ACETAMINOPHEN 325MG TABLET PO PRN ×2 (08:45)
[2023-06-04] MEDS ORDERED: IPRATROPIUM/ALBUTEROL 0.5-3(2.5)MG/3ML NEB NEB PRN (08:45)
[2023-06-04] MEDS ORDERED: ASPIRIN 325MG EC TABLET PO SCH (09:00)
[2023-06-04] MEDS: ENOXAPARIN 40MG/0.4ML SYR SUBCUT SCH (09:21)
[2023-06-04] MEDS: FAMOTIDINE 20MG TABLET PO SCH ×2 (09:22→21:24)
[2023-06-04] MEDS: GUAIFENESIN 600MG ER TABLET PO SCH ×2 (09:22→21:23)
[2023-06-04] MEDS: AMLODIPINE 10MG TABLET PO SCH (09:22)
[2023-06-04] MEDS: LEVOFLOXACIN 500MG PREMIX 100 ML IV SCH (11:03)
[2023-06-04 11:04] LABS: TROPONIN I HIGH SENSITIVITY 9 ng/L (3.0-34)
[2023-06-04] MEDS: GUAIFENESIN 200MG/10ML SUGAR FREE UDC PO PRN ×2 (13:13→21:24)
[2023-06-04] MEDS: METHYLPREDNISOLONE SOD SUCC 125MG/2ML (ACT-O-VIAL) IV SCH ×2 (13:14→21:22)
[2023-06-04] MEDS ORDERED: NA PHOS,M-B/NA PHOS,DI-BA ENEMA 118ML PR PRN (18:45)
[2023-06-04] MEDS ORDERED: SENNOSIDES/DOCUSATE SOD 8.6/50MG TABLET PO PRN (18:45)
[2023-06-04] MEDS ORDERED: BUDESONIDE 0.5MG/2ML NEB HHN SCH (18:45)
[2023-06-04 18:48] LABS: CREATINE KINASE 62 IU/L (34-145); CREATINE KINASE MB FRACTION 4.9 ng/mL (0.5-3.6); TROPONIN I HIGH SENSITIVITY 7 ng/L (3.0-34)
[2023-06-04] MEDS: THROAT LOZENGES-BENZOCAINE/MENTH/CETYLPYRD CL LOZENGES MM PRN (21:22)
[2023-06-04] MEDS: KETOROLAC 15MG/ML VIAL IV PRN (21:23)
[2023-06-04] MEDS: ZOLPIDEM TARTRATE 5MG TABLET PO PRN (21:23)
[2023-06-04] MEDS: ONDANSETRON HCL 4MG/2ML INJ IV PRN (21:30)
[2023-06-04] MEDS: IPRATROPIUM/ALBUTEROL 0.5-3(2.5)MG/3ML NEB HHN SCH (21:38)
[2023-06-05] VITALS (10 sets, daily range): BP systolic 110–137; BP diastolic 54–78; PULSE 61–94; RESP 17–22; TEMP 97.1–98; O2SAT 94–98
[2023-06-05] MEDS: IPRATROPIUM/ALBUTEROL 0.5-3(2.5)MG/3ML NEB HHN SCH ×6 (00:43→23:59)
[2023-06-05 01:16] LABS: CREATINE KINASE MB FRACTION 3.8 ng/mL (0.5-3.6)
[2023-06-05] MEDS: METHYLPREDNISOLONE SOD SUCC 125MG/2ML (ACT-O-VIAL) IV SCH ×3 (05:45→21:22)
[2023-06-05] MEDS: ONDANSETRON HCL 4MG/2ML INJ IV PRN ×3 (05:45→21:22)
[2023-06-05 07:17] LABS: HEMATOCRIT. 38.6 % (36.0-48.0); HEMOGLOBIN. 12.4 g/dL (12.0-16.0); MEAN CORPUSCULAR HEMOGLOBIN 28.2 pg (28.0-32.0); MEAN CORPUSCULAR HGB CONC 32.2 g/dL (31.0-37.0); MEAN CORPUSCULAR VOLUME 87.4 fL (81.0-99.0); MEAN PLATELET VOLUME 9.3 fl (7.4-10.4); PLATELET 226 x1000/uL (130-400); RED BLOOD CELL COUNT 4.41 mill/uL (4.2-5.4); RED CELL DISTRIBUTION WIDTH 14.4 % (11.6-14.6); WHITE BLOOD COUNT 18.6 x1000/uL (4.5-11.0)
[2023-06-05 07:40] LABS: DIFFERENTIAL COMMENT 1
[2023-06-05 08:17] LABS: ALANINE AMINOTRANSFERASE 22 IU/L (10-49); ALBUMIN 3.5 g/dL (3.2-4.8); ASPARTATE AMINOTRANSFERASE 13 IU/L (<34); BILIRUBIN TOTAL 0.5 mg/dL (0.1-1.0); CALCIUM 8.8 mg/dL (8.7-10.4); CARBON DIOXIDE 30 mEq/L (21-32); CHLORIDE 101 mEq/L (98-107); CREATININE 0.7 mg/dL (0.6-1.0); GLUCOSE 120 mg/dL (70-105); PHOSPHORUS 3.6 mg/dL (2.5-4.9); POTASSIUM 4.9 mEq/L (3.5-5.1); PROTEIN TOTAL 5.3 g/dL (6.0-8.3); SODIUM 140 mEq/L (136-145); UREA NITROGEN BLOOD 13 mg/dL (9-23)
[2023-06-05] MEDS: AMLODIPINE 10MG TABLET PO SCH (08:25)
[2023-06-05] MEDS: FAMOTIDINE 20MG TABLET PO SCH ×2 (08:25→21:23)
[2023-06-05] MEDS: GUAIFENESIN 600MG ER TABLET PO SCH ×2 (08:25→21:23)
[2023-06-05] MEDS: ASPIRIN 81MG TABLET PO SCH (08:28)
[2023-06-05] MEDS: ENOXAPARIN 40MG/0.4ML SYR SUBCUT SCH (09:33)
[2023-06-05] MEDS: LEVOFLOXACIN 500MG PREMIX 100 ML IV SCH (09:33)
[2023-06-05] MEDS: KETOROLAC 15MG/ML VIAL IV PRN (21:22)
[2023-06-05 21:23] LABS: PLATELET ESTIMATE NORMAL
[2023-06-05] MEDS: ZOLPIDEM TARTRATE 5MG TABLET PO PRN (21:23)
[2023-06-05] MEDS: GUAIFENESIN 200MG/10ML SUGAR FREE UDC PO PRN (21:40)
[2023-06-05] MEDS: THROAT LOZENGES-BENZOCAINE/MENTH/CETYLPYRD CL LOZENGES MM PRN (21:40)
[2023-06-06] VITALS: BP 124/64; PULSE 79; RESP 22; TEMP 96.9
[2023-06-06 04:00] VITALS: BP 122/42; PULSE 67; RESP 23; TEMP 97.2
[2023-06-06 05:21] VITALS: PULSE 68; RESP 18; O2SAT 98
[2023-06-06] MEDS: IPRATROPIUM/ALBUTEROL 0.5-3(2.5)MG/3ML NEB HHN SCH ×2 (05:21→07:47)
[2023-06-06] MEDS: ONDANSETRON HCL 4MG/2ML INJ IV PRN (05:29)
[2023-06-06] MEDS: METHYLPREDNISOLONE SOD SUCC 125MG/2ML (ACT-O-VIAL) IV SCH (05:29)
[2023-06-06 07:00] LABS: HEMOGLOBIN. 12.5 g/dL (12.0-16.0); MEAN CORPUSCULAR HEMOGLOBIN 27.8 pg (28.0-32.0); MEAN CORPUSCULAR HGB CONC 31.4 g/dL (31.0-37.0); MEAN CORPUSCULAR VOLUME 88.6 fL (81.0-99.0); PLATELET 220 x1000/uL (130-400); RED BLOOD CELL COUNT 4.51 mill/uL (4.2-5.4); RED CELL DISTRIBUTION WIDTH 14.2 % (11.6-14.6); WHITE BLOOD COUNT 20.5 x1000/uL (4.5-11.0)
[2023-06-06 07:05] LABS: DIFFERENTIAL COMMENT 1
[2023-06-06 07:47] VITALS: PULSE 76; RESP 20; O2SAT 95
[2023-06-06 07:59] LABS: CARBON DIOXIDE 32 mEq/L (21-32); CHLORIDE 102 mEq/L (98-107); CREATININE 0.7 mg/dL (0.6-1.0); GLUCOSE 122 mg/dL (70-105); POTASSIUM 5.1 mEq/L (3.5-5.1); SODIUM 140 mEq/L (136-145); UREA NITROGEN BLOOD 19 mg/dL (9-23)
[2023-06-06 08:00] VITALS: BP 146/75; PULSE 71; RESP 20; TEMP 97.3
[2023-06-06] MEDS: AMLODIPINE 10MG TABLET PO SCH (09:20)
[2023-06-06] MEDS: FAMOTIDINE 20MG TABLET PO SCH (09:20)
[2023-06-06] MEDS: ASPIRIN 81MG TABLET PO SCH (09:20)
[2023-06-06] MEDS: GUAIFENESIN 600MG ER TABLET PO SCH (09:20)
[2023-06-06] MEDS: LEVOFLOXACIN 500MG PREMIX 100 ML IV SCH (09:20)
[2023-06-06] MEDS: ENOXAPARIN 40MG/0.4ML SYR SUBCUT SCH (09:21)
[2023-06-06 10:00] VITALS: BP 146/75; PULSE 71; TEMP 97.3; O2SAT 99
[2023-06-06 12:58] LABS: PLATELET ESTIMATE NORMAL
== END 2023-06-06 13:30 | disposition home health service (06) | DRG 140 ==
LOC: ER 02:04 → 7WST 05:10 → EDBEDREQ 05:14
PROVIDERS: ADMIT Internal Medicine; ATTEND Internal Medicine
DX: J44.1 Chronic obstructive pulmonary disease with (acute) exacerbation (principal); J96.21 Acute and chronic respiratory failure with hypoxia; I11.0 Hypertensive heart disease with heart failure; I50.9 Heart failure, unspecified; R65.10 Systemic inflammatory response syndrome (SIRS) of non-infectious origin without acute organ dysfunction; Z99.81 Dependence on supplemental oxygen; E78.5 Hyperlipidemia, unspecified; F17.210 Nicotine dependence, cigarettes, uncomplicated; K59.09 Other constipation; Z79.51 Long term (current) use of inhaled steroids; Z79.82 Long term (current) use of aspirin; Z79.899 Other long term (current) drug therapy; Z82.49 Family history of ischemic heart disease and other diseases of the circulatory system
CPT/HCPCS: 36415; 71045; 80048; 80053; 82550; 82553; 83605; 83735; 83880; 84100; 84145; 84484; 85025; 85379; 87426; 93306; 94640; 97162; 97165; 99291; J0456; J0696; J1650; J1885; J1956; J2405; J2930; J7512

== ENCOUNTER 2023-08-24 22:32 | Emergency (ER) | payer MEDICARE, OTHER ==
[~2023-08-24] VITALS: Ht 165.1 cm; Wt 90.0 kg
[~2023-08-24 22:32] MED LIST changes: -ALBU18HF2 INH; -ALBU90AE INH; +ATOR20TA65 PO; -LEVO750T68 MT; -MED4 MT; +P20 PO; -P50 MT; -POLY17PO3 MT; -PRED10TA MT
[2023-08-24 22:45] VITALS: TEMP 98
[2023-08-24 23:33] LABS: BASOPHILS % 0.7 % (0.0-2.0); EOSINOPHILS % 1.8 % (0.0-5.0); HEMATOCRIT. 37.2 % (36.0-48.0); HEMOGLOBIN. 12.2 g/dL (12.0-16.0); LYMPHOCYTES % 22.6 % (20.0-50.0); MEAN CORPUSCULAR HEMOGLOBIN 29.3 pg (28.0-32.0); MEAN CORPUSCULAR HGB CONC 32.7 g/dL (31.0-37.0); MEAN CORPUSCULAR VOLUME 89.5 fL (81.0-99.0); MEAN PLATELET VOLUME 8.4 fl (7.4-10.4); MONOCYTES % 7.5 % (2.0-8.0); NEUTROPHILS % 67.4 % (40.0-76.0); PLATELET 266 x1000/uL (130-400); RED BLOOD CELL COUNT 4.16 mill/uL (4.2-5.4); RED CELL DISTRIBUTION WIDTH 15.6 % (11.6-14.6); WHITE BLOOD COUNT 8.7 x1000/uL (4.5-11.0)
[2023-08-24 23:36] LABS: ALANINE AMINOTRANSFERASE 9 IU/L (10-49); ALBUMIN 4.2 g/dL (3.2-4.8); ASPARTATE AMINOTRANSFERASE 12 IU/L (<34); BILIRUBIN TOTAL 0.3 mg/dL (0.1-1.0); CALCIUM 9.2 mg/dL (8.7-10.4); CARBON DIOXIDE 30 mEq/L (21-32); CHLORIDE 109 mEq/L (98-107); CREATININE 0.7 mg/dL (0.6-1.0); GLUCOSE 100 mg/dL (70-105); POTASSIUM 3.6 mEq/L (3.5-5.1); PROTEIN TOTAL 6.8 g/dL (6.0-8.3); SODIUM 142 mEq/L (136-145); TROPONIN I HIGH SENSITIVITY 5 ng/L (3.0-34); UREA NITROGEN BLOOD 7 mg/dL (9-23)
[2023-08-24 23:37] LABS: ETHANOL BLOOD < 10 mg/dL (<10)
[2023-08-24] MEDS: IPRATROPIUM BROMIDE (0.02%) 0.5MG/2.5ML NEB HHN STA (23:44)
[2023-08-24 23:45] VITALS: PULSE 73; RESP 17; O2SAT 99
[2023-08-24] MEDS: ALBUTEROL (0.083%) 2.5MG/3ML NEB HHN STA (23:45)
[2023-08-24] MEDS: MAGNESIUM/ALUMINUM HYDROXIDE/SIMETHICONE 30ML UDC PO ONE (23:51)
[2023-08-24] MEDS: METHYLPREDNISOLONE SOD SUCC 125MG/2ML (ACT-O-VIAL) IV STA (23:51)
[2023-08-24] MEDS: ONDANSETRON HCL 4MG/2ML INJ IV ONE (23:52)
[2023-08-25] MEDS ORDERED: ALBU6.7H15 INH (00:07)
[2023-08-25] MEDS ORDERED: ALBU05 NEB (00:07)
[2023-08-25] MEDS ORDERED: P20 MT (00:07)
[2023-08-25 00:23] VITALS: BP 137/77; PULSE 82; RESP 18
== END 2023-08-25 00:28 | disposition home or self-care (01) ==
LOC: ER 22:32
DX: J44.1 Chronic obstructive pulmonary disease with (acute) exacerbation (principal); I11.0 Hypertensive heart disease with heart failure; I50.9 Heart failure, unspecified; J44.9 Chronic obstructive pulmonary disease, unspecified; F17.210 Nicotine dependence, cigarettes, uncomplicated
CPT/HCPCS: 80053; 80320; 83880; 85025; 84484; 36415; 71045; 94640; 93005; 99284; 99406; J2930; J2405; Z7610 ×5; G0480

== ENCOUNTER 2023-10-21 22:55 | Emergency (ER) | payer MEDICARE, OTHER ==
[~2023-10-21] VITALS: Ht 170.2 cm; Wt 100.0 kg
[~2023-10-21 22:55] MED LIST changes: +ALBU05 NEB; +ALBU6.7H15 INH; +GUAI600T26 MT; +P20 MT
[2023-10-21] MEDS: ASPIRIN 325MG EC TABLET PO ONE (23:00)
[2023-10-21 23:23] LABS: CHLORIDE 104 mEq/L (98-107); POTASSIUM 3.5 mEq/L (3.5-5.1); SODIUM 140 mEq/L (136-145)
[2023-10-21 23:24] LABS: CALCIUM 9.7 mg/dL (8.7-10.4); CARBON DIOXIDE 32 mEq/L (21-32)
[2023-10-21 23:26] LABS: INR 0.9; PARTIAL THROMBOPLASTIN TIME 26.3 sec (23.4-31.0); PROTHROMBIN TIME 10.6 sec (9.6-11.0)
[2023-10-21 23:27] LABS: BASOPHILS % 0.7 % (0.0-2.0); EOSINOPHILS % 2.1 % (0.0-5.0); HEMATOCRIT. 39.4 % (36.0-48.0); HEMOGLOBIN. 12.9 g/dL (12.0-16.0); LYMPHOCYTES % 29.9 % (20.0-50.0); MEAN CORPUSCULAR HEMOGLOBIN 28.9 pg (28.0-32.0); MEAN CORPUSCULAR HGB CONC 32.7 g/dL (31.0-37.0); MEAN CORPUSCULAR VOLUME 88.2 fL (81.0-99.0); MEAN PLATELET VOLUME 8.4 fl (7.4-10.4); MONOCYTES % 8.6 % (2.0-8.0); NEUTROPHILS % 58.7 % (40.0-76.0); PLATELET 246 x1000/uL (130-400); RED BLOOD CELL COUNT 4.47 mill/uL (4.2-5.4); RED CELL DISTRIBUTION WIDTH 13.7 % (11.6-14.6); WHITE BLOOD COUNT 6.6 x1000/uL (4.5-11.0)
[2023-10-21 23:29] LABS: GLUCOSE 104 mg/dL (70-105); TROPONIN I HIGH SENSITIVITY 4 ng/L (3.0-34); UREA NITROGEN BLOOD 7 mg/dL (9-23)
[2023-10-21 23:40] LABS: ETHANOL BLOOD < 10 mg/dL (<10)
[2023-10-22] MEDS: IPRATROPIUM/ALBUTEROL 0.5-3(2.5)MG/3ML NEB HHN NR (01:15)
[2023-10-22 01:18] VITALS: PULSE 63; RESP 18; O2SAT 96
[2023-10-22] MEDS ORDERED: CEPH500C2 MT (01:50)
[2023-10-22] MEDS: PREDNISONE 20MG TABLET PO ONE (01:57)
[2023-10-22 02:02] VITALS: BP 136/78; PULSE 79; RESP 18; TEMP 98.6
== END 2023-10-22 02:00 | disposition home or self-care (01) ==
LOC: ER 23:17
DX: J44.1 Chronic obstructive pulmonary disease with (acute) exacerbation (principal); L73.9 Follicular disorder, unspecified; I10 Essential (primary) hypertension; I25.10 Atherosclerotic heart disease of native coronary artery without angina pectoris; F17.290 Nicotine dependence, other tobacco product, uncomplicated; Z91.041 Radiographic dye allergy status; Z79.899 Other long term (current) drug therapy
CPT/HCPCS: 80048; 80320; 83880; 85025; 85610; 85730; 84484; 36415; 71045; 93005; 99285; 94640; J7512; G0480

== ENCOUNTER 2023-11-27 19:24 | Emergency (ER) | payer MEDICARE, OTHER ==
[~2023-11-27] VITALS: Ht 167.6 cm; Wt 91.0 kg
[~2023-11-27 19:24] MED LIST changes: +CEPH500C2 MT
[2023-11-27 19:35] VITALS: TEMP 98.1
[2023-11-27 22:01] LABS: BASOPHILS % 0.6 % (0.0-2.0); EOSINOPHILS % 0.9 % (0.0-5.0); HEMATOCRIT. 40.9 % (36.0-48.0); HEMOGLOBIN. 13.2 g/dL (12.0-16.0); LYMPHOCYTES % 22.2 % (20.0-50.0); MEAN CORPUSCULAR HEMOGLOBIN 28.7 pg (28.0-32.0); MEAN CORPUSCULAR HGB CONC 32.4 g/dL (31.0-37.0); MEAN CORPUSCULAR VOLUME 88.8 fL (81.0-99.0); MEAN PLATELET VOLUME 8.3 fl (7.4-10.4); MONOCYTES % 7.2 % (2.0-8.0); NEUTROPHILS % 69.1 % (40.0-76.0); PLATELET 254 x1000/uL (130-400); RED BLOOD CELL COUNT 4.61 mill/uL (4.2-5.4); RED CELL DISTRIBUTION WIDTH 14.3 % (11.6-14.6); WHITE BLOOD COUNT 9.7 x1000/uL (4.5-11.0)
[2023-11-27 22:09] LABS: CHLORIDE 104 mEq/L (98-107); POTASSIUM 3.9 mEq/L (3.5-5.1); SODIUM 142 mEq/L (136-145)
[2023-11-27] MEDS: METHYLPREDNISOLONE SOD SUCC 125MG/2ML (ACT-O-VIAL) IV ONE (22:09)
[2023-11-27 22:10] LABS: CARBON DIOXIDE 35 mEq/L (21-32)
[2023-11-27 22:11] LABS: CALCIUM 9.2 mg/dL (8.7-10.4)
[2023-11-27 22:15] LABS: CREATININE 0.9 mg/dL (0.6-1.0); GLUCOSE 105 mg/dL (70-105)
[2023-11-27 22:16] LABS: UREA NITROGEN BLOOD 8 mg/dL (9-23)
[2023-11-27 22:17] LABS: TROPONIN I HIGH SENSITIVITY 6 ng/L (3.0-34)
[2023-11-27 22:33] VITALS: PULSE 67; RESP 18; O2SAT 98
[2023-11-27] MEDS: IPRATROPIUM/ALBUTEROL 0.5-3(2.5)MG/3ML NEB HHN ONE (22:33)
[2023-11-28] MEDS ORDERED: IPRATROPIUM BROMIDE (0.02%) 0.5MG/2.5ML NEB HHN STA (00:17)
[2023-11-28] MEDS ORDERED: ALBUTEROL (0.083%) 2.5MG/3ML NEB HHN STA (00:17)
[2023-11-28] MEDS: MAGNESIUM 2 G PREMIX 50 ML IV STA (00:17)
[2023-11-28 00:48] VITALS: BP 144/77; PULSE 80; RESP 18
== END 2023-11-28 00:30 | disposition left against medical advice (07) ==
LOC: ER 19:24
DX: J96.90 Respiratory failure, unspecified, unspecified whether with hypoxia or hypercapnia (principal); J44.1 Chronic obstructive pulmonary disease with (acute) exacerbation; I10 Essential (primary) hypertension; Z91.040 Latex allergy status; Z79.899 Other long term (current) drug therapy
CPT/HCPCS: 99285; 96374; 71045; 80048; 83880; 85025; 84484; 36415; 94640; 93005; J2919

== ENCOUNTER 2023-12-09 18:21 | Emergency (ER) | payer MEDICARE, OTHER ==
[~2023-12-09] VITALS: Ht 177.8 cm; Wt 91.0 kg
[2023-12-09 18:33] VITALS: O2SAT 95
[2023-12-09 20:51] LABS: BASOPHILS % 0.6 % (0.0-2.0); EOSINOPHILS % 0.7 % (0.0-5.0); HEMATOCRIT. 38.2 % (36.0-48.0); HEMOGLOBIN. 12.5 g/dL (12.0-16.0); LYMPHOCYTES % 19.8 % (20.0-50.0); MEAN CORPUSCULAR HEMOGLOBIN 28.9 pg (28.0-32.0); MEAN CORPUSCULAR HGB CONC 32.6 g/dL (31.0-37.0); MEAN CORPUSCULAR VOLUME 88.6 fL (81.0-99.0); MEAN PLATELET VOLUME 8.5 fl (7.4-10.4); MONOCYTES % 8.2 % (2.0-8.0); NEUTROPHILS % 70.7 % (40.0-76.0); PLATELET 241 x1000/uL (130-400); RED BLOOD CELL COUNT 4.31 mill/uL (4.2-5.4); RED CELL DISTRIBUTION WIDTH 14.5 % (11.6-14.6); WHITE BLOOD COUNT 9.9 x1000/uL (4.5-11.0)
[2023-12-09 20:59] LABS: CHLORIDE 110 mEq/L (98-107); SODIUM 144 mEq/L (136-145)
[2023-12-09 21:00] LABS: CALCIUM 9.4 mg/dL (8.7-10.4); CARBON DIOXIDE 32 mEq/L (21-32)
[2023-12-09 21:01] LABS: INR 0.9; PARTIAL THROMBOPLASTIN TIME 25.3 sec (23.4-31.0); PROTHROMBIN TIME 10.4 sec (9.6-11.0)
[2023-12-09 21:05] LABS: CREATININE 0.7 mg/dL (0.6-1.0); GLUCOSE 90 mg/dL (70-105)
[2023-12-09 21:06] LABS: TROPONIN I HIGH SENSITIVITY 6 ng/L (3.0-34)
[2023-12-09 21:14] LABS: UREA NITROGEN BLOOD < 5 mg/dL (9-23)
[2023-12-09 21:15] VITALS: BP 140/69; TEMP 98.7
[2023-12-09 21:43] VITALS: PULSE 80; RESP 18
[2023-12-09] MEDS: IPRATROPIUM BROMIDE (0.02%) 0.5MG/2.5ML NEB HHN NR (21:43)
[2023-12-09] MEDS: METHYLPREDNISOLONE SOD SUCC 125MG/2ML (ACT-O-VIAL) IV NR (21:59)
[2023-12-09 22:20] VITALS: PULSE 80; RESP 18
[2023-12-09] MEDS: ALBUTEROL (0.083%) 2.5MG/3ML NEB HHN NR (22:20)
[2023-12-09 22:50] VITALS: PULSE 80; RESP 18
[2023-12-09 23:20] VITALS: PULSE 80; RESP 18
[2023-12-09] MEDS ORDERED: ALBU6.7H15 INH (23:22)
[2023-12-09] MEDS ORDERED: P50 MT (23:22)
[2023-12-09] MEDS ORDERED: HYDR-4001 MT (23:23)
[2023-12-10] MEDS: HYDROCODONE/ACETAMINOPHEN 5/325MG TABLET PO ONE (00:04)
== END 2023-12-10 00:10 | disposition home or self-care (01) ==
LOC: ER 18:21
DX: J44.1 Chronic obstructive pulmonary disease with (acute) exacerbation (principal); I10 Essential (primary) hypertension
CPT/HCPCS: 99285; 96374; 71045; 80048; 83880; 85025; 85610; 85730; 84484; 36415; 94640; 93005; J2919

== ENCOUNTER 2023-12-20 01:06 | Emergency (ER) | payer MEDICARE, OTHER ==
[~2023-12-20] VITALS: Ht 172.7 cm; Wt 90.0 kg
[~2023-12-20 01:06] MED LIST changes: -ALBU05 NEB; +ALBU18HF2 IH; -ALBU6.7H15 INH; -ALBU6.7H3 INH; -AMLO10TA80 PO; -BUDE6HFA IH; -CEPH500C2 MT; -DEXT15LI MT; -DEXT30SU17 MT; -FAMO-135 MT; +FAMO20TA8 MT; +FLUT9.9S BOTHNSTRLS; -GUAI600T26 MT; +GUAI600T44 PO; -IBUP-2028 MT; +LORA10TA7 MT; -LORA10TA7 PO; +MONT-46 PO; -OMEP20TA23 PO; -P20 PO
[2023-12-20 01:11] VITALS: O2SAT 93
[2023-12-20] MEDS: HYDROCODONE/ACETAMINOPHEN 5/325MG TABLET PO ONE (02:08)
[2023-12-20] MEDS: ALBUTEROL (0.083%) 2.5MG/3ML NEB HHN STA (02:44)
[2023-12-20] MEDS: IPRATROPIUM BROMIDE (0.02%) 0.5MG/2.5ML NEB HHN STA (02:44)
[2023-12-20] MEDS: KETOROLAC 30MG/ML VIAL IM ONE (04:15)
[2023-12-20 05:45] VITALS: BP 130/56; PULSE 60; RESP 14
== END 2023-12-20 06:13 | disposition home or self-care (01) ==
LOC: ER 01:08
DX: J44.1 Chronic obstructive pulmonary disease with (acute) exacerbation (principal); F43.9 Reaction to severe stress, unspecified; I11.0 Hypertensive heart disease with heart failure; I50.9 Heart failure, unspecified; Z79.899 Other long term (current) drug therapy
CPT/HCPCS: 96372; 99283; J1885; Z7610

== ENCOUNTER 2024-01-22 11:58 | Inpatient (IN) | payer MEDICARE, OTHER ==
[~2024-01-22] VITALS: Ht 170.2 cm; Wt 85.7 kg
[2024-01-22 12:31] LABS: BASOPHILS % 0.6 % (0.0-2.0); EOSINOPHILS % 0.7 % (0.0-5.0); HEMATOCRIT. 38.8 % (36.0-48.0); HEMOGLOBIN. 12.8 g/dL (12.0-16.0); LYMPHOCYTES % 14.5 % (20.0-50.0); MEAN CORPUSCULAR HEMOGLOBIN 29.4 pg (28.0-32.0); MEAN PLATELET VOLUME 8.6 fl (7.4-10.4); MONOCYTES % 8.4 % (2.0-8.0); NEUTROPHILS % 75.8 % (40.0-76.0); PLATELET 278 x1000/uL (130-400); RED BLOOD CELL COUNT 4.36 mill/uL (4.2-5.4); RED CELL DISTRIBUTION WIDTH 14.8 % (11.6-14.6); WHITE BLOOD COUNT 10.1 x1000/uL (4.5-11.0)
[2024-01-22] MEDS: HYDROCODONE/ACETAMINOPHEN 5/325MG TABLET PO ONE (12:35)
[2024-01-22 12:41] LABS: CHLORIDE 107 mEq/L (98-107); POTASSIUM 3.3 mEq/L (3.5-5.1); SODIUM 143 mEq/L (136-145)
[2024-01-22 12:42] LABS: CALCIUM 9.9 mg/dL (8.7-10.4); CARBON DIOXIDE 30 mEq/L (21-32)
[2024-01-22 12:47] LABS: CREATININE 0.8 mg/dL (0.6-1.0); GLUCOSE 106 mg/dL (70-105); UREA NITROGEN BLOOD 5 mg/dL (9-23)
[2024-01-22 12:48] LABS: TROPONIN I HIGH SENSITIVITY 5 ng/L (3.0-34)
[2024-01-22] MEDS: METHYLPREDNISOLONE SOD SUCC 125MG/2ML (ACT-O-VIAL) IV ONE (14:37)
[2024-01-22] MEDS: METHYLPREDNISOLONE SOD SUCC 125MG/2ML (ACT-O-VIAL) IV STA (15:03)
[2024-01-22] MEDS: ASPIRIN 81MG TABLET PO ONE (15:04)
[2024-01-22 15:08] VITALS: PULSE 68; RESP 18; O2SAT 98
[2024-01-22] MEDS: ALBUTEROL (0.083%) 2.5MG/3ML NEB HHN STA (15:08)
[2024-01-22] MEDS: ALBUTEROL (0.083%) 2.5MG/3ML NEB HHN ONE (16:34)
[2024-01-22 21:36] VITALS: PULSE 84; RESP 18; O2SAT 99
[2024-01-22] MEDS: FAMOTIDINE 20MG TABLET PO SCH (21:36)
[2024-01-22] MEDS: IPRATROPIUM/ALBUTEROL 0.5-3(2.5)MG/3ML NEB HHN SCH (21:36)
[2024-01-22] MEDS: BUDESONIDE 0.5MG/2ML NEB HHN SCH (21:36)
[2024-01-22] MEDS: ACETAMINOPHEN 325MG TABLET PO PRN (21:37)
[2024-01-22] MEDS: AZITHROMYCIN 500MG/250ML 250 ML IV SCH (21:43)
[2024-01-22] MEDS: METHYLPREDNISOLONE SOD SUCC 40MG/ML (ACT-O-VIAL) IV SCH (22:09)
[2024-01-22 22:32] VITALS: BP 154/72; PULSE 87; RESP 19; TEMP 36.61404; O2SAT 95
[2024-01-23] VITALS (7 sets, daily range): BP systolic 110–140; BP diastolic 67–69; PULSE 56–78; RESP 18–22; TEMP 36.44736–36.6404; O2SAT 96–99
[2024-01-23] MEDS ORDERED: NALOXONE HCL 0.4MG/ML VIAL IV PRN (01:00)
[2024-01-23] MEDS: HYDROCODONE/ACETAMINOPHEN 10/325MG TABLET PO PRN (01:12)
[2024-01-23] MEDS: ENOXAPARIN 30MG/0.3ML SYR SUBCUT SCH (09:00)
[2024-01-23] MEDS: METHYLPREDNISOLONE SOD SUCC 40MG/ML (ACT-O-VIAL) IV SCH (13:57)
[2024-01-23] MEDS: AZITHROMYCIN 500 MG TABLET PO SCH (20:54)
[2024-01-23] MEDS ORDERED: IPRATROPIUM/ALBUTEROL 0.5-3(2.5)MG/3ML NEB HHN PRN (22:30)
[2024-01-23] MEDS ORDERED: ONDANSETRON HCL 4MG/2ML INJ IV PRN (22:30)
[2024-01-23] MEDS ORDERED: CLONIDINE 0.1MG TABLET PO PRN (22:30)
[2024-01-23] MEDS ORDERED: DOCUSATE SODIUM 100MG CAPSULE PO PRN (22:30)
[2024-01-24] VITALS (10 sets, daily range): BP systolic 126–138; BP diastolic 58–85; PULSE 63–90; RESP 18–21; TEMP 36.33624–36.78072; O2SAT 96–99
[2024-01-24 07:18] LABS: D-DIMER 0.5 mg/L FEU (<0.50); PROTHROMBIN TIME 10.7 sec (9.6-11.0)
[2024-01-24 07:26] LABS: CHLORIDE 106 mEq/L (98-107); CREATINE KINASE MB FRACTION 1.6 ng/mL (0.5-3.6); POTASSIUM 4.2 mEq/L (3.5-5.1); SODIUM 143 mEq/L (136-145)
[2024-01-24 07:27] LABS: CALCIUM 9.4 mg/dL (8.7-10.4); CARBON DIOXIDE 31 mEq/L (21-32)
[2024-01-24 07:31] LABS: T4 FREE 0.93 ng/dL (0.89-1.76); THYROID STIMULATING HORMONE 0.14 uIU/mL (0.55-4.78); TRIGLYCERIDE 81 mg/dL (0-150)
[2024-01-24 07:32] LABS: CREATININE 0.9 mg/dL (0.6-1.0); GLUCOSE 198 mg/dL (70-105); PROTEIN TOTAL 6.1 g/dL (6.0-8.3); UREA NITROGEN BLOOD 12 mg/dL (9-23)
[2024-01-24 07:33] LABS: LDL CHOLESTEROL 117 mg/dL (5-100)
[2024-01-24 07:34] LABS: ALANINE AMINOTRANSFERASE 8 IU/L (10-49); ASPARTATE AMINOTRANSFERASE 10 IU/L (<34); CHOLESTEROL 189 mg/dL (<200); HDL CHOLESTEROL 59 mg/dL (>65); PHOSPHORUS 2.7 mg/dL (2.5-4.9)
[2024-01-24 07:35] LABS: BILIRUBIN TOTAL 0.2 mg/dL (0.1-1.0)
[2024-01-24 07:55] LABS: BILIRUBIN DIRECT < 0.1 mg/dL (<=3.0)
[2024-01-24 07:56] LABS: HEMATOCRIT. 36.4 % (36.0-48.0); HEMOGLOBIN. 11.6 g/dL (12.0-16.0); MEAN CORPUSCULAR HEMOGLOBIN 28.7 pg (28.0-32.0); MEAN CORPUSCULAR HGB CONC 31.9 g/dL (31.0-37.0); MEAN CORPUSCULAR VOLUME 90.1 fL (81.0-99.0); MEAN PLATELET VOLUME 9.4 fl (7.4-10.4); PLATELET 276 x1000/uL (130-400); RED BLOOD CELL COUNT 4.04 mill/uL (4.2-5.4); RED CELL DISTRIBUTION WIDTH 14.5 % (11.6-14.6); WHITE BLOOD COUNT 17.7 x1000/uL (4.5-11.0)
[2024-01-24 08:01] LABS: DIFFERENTIAL COMMENT 1
[2024-01-24] MEDS: ASPIRIN 81MG TABLET PO SCH (09:27)
[2024-01-24 16:04] LABS: CREATINE KINASE MB FRACTION 1.4 ng/mL (0.5-3.6)
[2024-01-24] MEDS ORDERED: ENOXAPARIN 40MG/0.4ML SYR SUBCUT SCH (21:00)
[2024-01-24 23:05] LABS: PLATELET ESTIMATE NORMAL
== END 2024-01-24 20:02 | disposition short-term general hospital (02) | DRG 140 ==
LOC: ER 11:58 → EDBEDREQTM 14:57 → EDBEDREQ 14:57 → 5WST 17:52 → 7EST 01-23 10:00
PROVIDERS: ADMIT Internal Medicine; ATTEND Internal Medicine
DX: J44.1 Chronic obstructive pulmonary disease with (acute) exacerbation (principal); J96.01 Acute respiratory failure with hypoxia; F17.200 Nicotine dependence, unspecified, uncomplicated; I10 Essential (primary) hypertension; E66.9 Obesity, unspecified; E78.00 Pure hypercholesterolemia, unspecified; E87.6 Hypokalemia; F17.210 Nicotine dependence, cigarettes, uncomplicated; Z20.822 Contact with and (suspected) exposure to COVID-19; Z68.29 Body mass index [BMI] 29.0-29.9, adult; Z79.899 Other long term (current) drug therapy
CPT/HCPCS: 36415; 71045; 80048; 80061; 80076; 82550; 82553; 83036; 83735; 83880; 84100; 84145; 84439; 84443; 84480; 84484; 85025; 85379; 87426; 93005; 94640; 99285; J0456; J1650; J2919; J2920; J7626

== ENCOUNTER 2024-05-08 12:22 | Inpatient (IN) | payer MEDICARE, OTHER ==
[~2024-05-08] VITALS: Ht 170.2 cm; Wt 89.8 kg
[~2024-05-08 12:22] MED LIST changes: +AZIT500T8 MT
[2024-05-08 13:38] LABS: CHLORIDE 107 mEq/L (98-107); POTASSIUM 3.6 mEq/L (3.5-5.1); SODIUM 145 mEq/L (136-145)
[2024-05-08 13:39] LABS: CALCIUM 9.7 mg/dL (8.7-10.4); CARBON DIOXIDE 31 mEq/L (21-32)
[2024-05-08 13:40] LABS: BASOPHILS % 0.7 % (0.0-2.0); EOSINOPHILS % 0.5 % (0.0-5.0); HEMATOCRIT. 38.8 % (36.0-48.0); HEMOGLOBIN. 12.5 g/dL (12.0-16.0); LYMPHOCYTES % 19.1 % (20.0-50.0); MEAN CORPUSCULAR HEMOGLOBIN 28.4 pg (28.0-32.0); MEAN CORPUSCULAR HGB CONC 32.3 g/dL (31.0-37.0); MEAN CORPUSCULAR VOLUME 87.8 fL (81.0-99.0); MEAN PLATELET VOLUME 8.5 fl (7.4-10.4); MONOCYTES % 8.1 % (2.0-8.0); NEUTROPHILS % 71.6 % (40.0-76.0); PLATELET 246 x1000/uL (130-400); RED BLOOD CELL COUNT 4.42 mill/uL (4.2-5.4); RED CELL DISTRIBUTION WIDTH 15.3 % (11.6-14.6); WHITE BLOOD COUNT 8.4 x1000/uL (4.5-11.0)
[2024-05-08 13:44] LABS: CREATININE 0.7 mg/dL (0.6-1.0); GLUCOSE 97 mg/dL (70-105); UREA NITROGEN BLOOD 8 mg/dL (9-23)
[2024-05-08 14:00] LABS: TROPONIN I HIGH SENSITIVITY < 4 ng/L (3.0-34)
[2024-05-08] MEDS ORDERED: ACET-2708 MT (15:10)
[2024-05-08] MEDS ORDERED: ALBU18HF2 IH (15:10)
[2024-05-08] MEDS ORDERED: IPRA3AMP9 HHN (15:10)
[2024-05-08] MEDS ORDERED: VARE1TAB22 MT (15:10)
[2024-05-08] MEDS: METHYLPREDNISOLONE SOD SUCC 125MG/2ML (ACT-O-VIAL) IV ONE (15:23)
[2024-05-08 15:26] LABS: TROPONIN I HIGH SENSITIVITY 4 ng/L (3.0-34)
[2024-05-08 16:04] VITALS: PULSE 67; RESP 24
[2024-05-08] MEDS: IPRATROPIUM/ALBUTEROL 0.5-3(2.5)MG/3ML NEB HHN ONE (16:04)
[2024-05-08] MEDS ORDERED: IPRATROPIUM/ALBUTEROL 0.5-3(2.5)MG/3ML NEB NEB PRN (18:30)
[2024-05-08] MEDS ORDERED: ACETAMINOPHEN 325MG TABLET PO PRN (18:30)
[2024-05-08] MEDS ORDERED: DOCUSATE SODIUM 100MG CAPSULE PO PRN (18:30)
[2024-05-08] MEDS ORDERED: MAGNESIUM/ALUMINUM HYDROXIDE/SIMETHICONE 30ML UDC PO PRN (18:30)
[2024-05-08] MEDS ORDERED: ONDANSETRON HCL 4MG/2ML INJ IV PRN (18:30)
[2024-05-08] MEDS ORDERED: CLONIDINE 0.1MG TABLET PO PRN (18:30)
[2024-05-08 18:56] LABS: T4 FREE 1.12 ng/dL (0.89-1.76)
[2024-05-08 18:57] LABS: THYROID STIMULATING HORMONE 0.89 uIU/mL (0.55-4.78)
[2024-05-08 18:57] LABS: BG BASE EXCESS 1.6 mmol/L (-2.0-3.0); BG CARBOXYHEMOGLOBIN 0.4 % (0.5-1.5); BG DEOXYHEMOGLOBIN 2.7 % (0.0-5.0); BG FRACTION INSPIRED OXYGEN 28; BG HCO3 ACT 27.6 mmol/L (21.0-28.0); BG METHEMOGLOBIN 0.3 % (0.5-1.5); BG OXYGEN SATURATION 97.3 % (94.0-98.0); BG OXYHEMOGLOBIN 96.6 % (94.0-98.0); BG PCO2 48.7 mmHg (32.0-45.0); BG PH 7.371 (7.350-7.450); BG PO2 95.3 mmHg (83.0-108.0); BG SAMPLE SITE RIGHT RADIAL; BG TOTAL HEMOGLOBIN 13.3 g/dL (12.0-16.0); BG VENT MODE NASAL CANNULA
[2024-05-08] MEDS: KETOROLAC 15MG/ML VIAL IV PRN (19:22)
[2024-05-08 19:51] VITALS: PULSE 80; RESP 24; O2SAT 97
[2024-05-08] MEDS: IPRATROPIUM/ALBUTEROL 0.5-3(2.5)MG/3ML NEB HHN SCH (19:51)
[2024-05-08 20:00] VITALS: BP 126/60; PULSE 93; RESP 18; TEMP 36.50292; O2SAT 100
[2024-05-08] MEDS: ZOLPIDEM TARTRATE 5MG TABLET PO PRN (21:09)
[2024-05-08] MEDS: ENOXAPARIN 40MG/0.4ML SYR SUBCUT SCH (21:57)
[2024-05-08] MEDS: GUAIFENESIN 600MG ER TABLET PO SCH (21:57)
[2024-05-08] MEDS: FAMOTIDINE 20MG TABLET PO SCH (21:57)
[2024-05-08] MEDS: METHYLPREDNISOLONE SOD SUCC 40MG/ML (ACT-O-VIAL) IV SCH (22:04)
[2024-05-08] MEDS: AZITHROMYCIN 500MG/250ML 250 ML IV SCH (23:39)
[2024-05-09] VITALS (12 sets, daily range): BP systolic 123–147; BP diastolic 54–84; PULSE 64–93; RESP 16–22; TEMP 36.3918–36.78072; O2SAT 98–100
[2024-05-09 07:12] LABS: HEMATOCRIT. 39.3 % (36.0-48.0); HEMOGLOBIN. 12.2 g/dL (12.0-16.0); MEAN CORPUSCULAR HEMOGLOBIN 27.9 pg (28.0-32.0); MEAN CORPUSCULAR HGB CONC 31.1 g/dL (31.0-37.0); MEAN CORPUSCULAR VOLUME 89.6 fL (81.0-99.0); MEAN PLATELET VOLUME 9.2 fl (7.4-10.4); PLATELET 253 x1000/uL (130-400); RED BLOOD CELL COUNT 4.38 mill/uL (4.2-5.4); RED CELL DISTRIBUTION WIDTH 15.1 % (11.6-14.6); WHITE BLOOD COUNT 11.7 x1000/uL (4.5-11.0)
[2024-05-09 07:14] LABS: CHLORIDE 108 mEq/L (98-107); POTASSIUM 4.9 mEq/L (3.5-5.1); SODIUM 143 mEq/L (136-145)
[2024-05-09 07:15] LABS: DIFFERENTIAL COMMENT 1
[2024-05-09 07:18] LABS: CARBON DIOXIDE 27 mEq/L (21-32)
[2024-05-09 07:23] LABS: CREATININE 0.9 mg/dL (0.6-1.0); GLUCOSE 108 mg/dL (70-105)
[2024-05-09 07:24] LABS: UREA NITROGEN BLOOD 12 mg/dL (9-23)
[2024-05-09 07:25] LABS: ALBUMIN 4.2 g/dL (3.2-4.8)
[2024-05-09 07:26] LABS: ALANINE AMINOTRANSFERASE 8 IU/L (10-49); ASPARTATE AMINOTRANSFERASE 12 IU/L (<34); BILIRUBIN TOTAL 0.4 mg/dL (0.1-1.0); PHOSPHORUS 3.2 mg/dL (2.5-4.9); PROTEIN TOTAL 6.3 g/dL (6.0-8.3)
[2024-05-09 10:44] LABS: PLATELET ESTIMATE NORMAL
[2024-05-09] MEDS: ASPIRIN 81MG EC TABLET PO SCH (10:58)
[2024-05-09 12:00] LABS: CLARITY URINE CLEAR (CLEAR); COLOR URINE YELLOW (YELLOW); GLUCOSE URINE 1+ (NEGATIVE); KETONES URINE NEGATIVE (NEGATIVE); LEUKOCYTE ESTERASE URINE NEGATIVE (NEGATIVE); NITRITE URINE NEGATIVE (NEGATIVE); OCCULT BLOOD URINE NEGATIVE (NEGATIVE); PH URINE 5.5 (4.5-8.0); PROTEIN URINE NEGATIVE (NEGATIVE); SPECIFIC GRAVITY URINE 1.016 (1.005-1.030)
[2024-05-09 12:12] LABS: BACTERIA URINE 1+; RBC URINE 0-2 /hpf (0-2); SQUAMOUS EPITHELIAL CELL URINE 2+ /lpf (RARE/1+); WBC URINE 0-2 /hpf (0-2); YEAST URINE NONE SEEN
[2024-05-09 12:21] LABS: *AMPHETAMINES SCREEN URINE NEGATIVE (NEGATIVE); *BARBITURATES SCREEN URINE NEGATIVE (NEGATIVE); *BENZODIAZEPINES SCREEN URINE NEGATIVE (NEGATIVE)
[2024-05-09 12:22] LABS: *COCAINE SCREEN URINE NEGATIVE (NEGATIVE); CANNABINOID URINE SCREEN NEGATIVE (NEGATIVE); ECSTASY MDMA SCREEN URINE NEGATIVE (NEGATIVE); METHADONE URINE SCREEN NEGATIVE (NEGATIVE); OPIATES URINE SCREEN NEGATIVE (NEGATIVE); PHENCYCLIDINE URINE SCREEN NEGATIVE (NEGATIVE)
[2024-05-09] MEDS: NITROGLYCERIN 0.4MG TABLET SL SL PRN (12:28)
[2024-05-09] MEDS: LORATADINE 10MG TABLET PO SCH (15:38)
[2024-05-09] MEDS: MONTELUKAST SODIUM 10MG TABLET PO SCH (17:06)
[2024-05-09] MEDS: FLUTICASONE PROPIONATE 50MCG/SPRAY BOTTLE BOTHNSTRLS SCH (22:00)
[2024-05-09] MEDS: ACETAMINOPHEN 325MG TABLET PO PRN (23:37)
[2024-05-10] VITALS (12 sets, daily range): BP systolic 116–147; BP diastolic 49–83; PULSE 63–92; RESP 16–22; TEMP 36.33624–36.9474; O2SAT 97–100
[2024-05-10] MEDS: GUAIFENESIN 200MG/10ML SUGAR FREE UDC PO PRN (17:14)
[2024-05-10] MEDS: AZITHROMYCIN 500MG/250ML 250 ML IV SCH (20:34)
[2024-05-11] VITALS (9 sets, daily range): BP systolic 128–154; BP diastolic 59–83; PULSE 57–88; RESP 17–20; TEMP 36.44736–37.05852; O2SAT 98–100
[2024-05-11] MEDS: METHYLPREDNISOLONE SOD SUCC 40MG/ML (ACT-O-VIAL) IV SCH (14:00)
[2024-05-12] VITALS (11 sets, daily range): BP systolic 115–151; BP diastolic 54–87; PULSE 60–96; RESP 16–20; TEMP 36.00288–36.78072; O2SAT 96–100
[2024-05-13] VITALS: BP 126/54; PULSE 62; RESP 16; TEMP 36.78072; O2SAT 98
[2024-05-13 00:29] VITALS: PULSE 70; RESP 18; O2SAT 97
[2024-05-13 04:00] VITALS: BP 147/58; PULSE 60; RESP 16; TEMP 36.28068; O2SAT 97
[2024-05-13 04:56] VITALS: PULSE 76; RESP 18; O2SAT 97
[2024-05-13] MEDS ORDERED: AZIT500T8 MT (09:17)
[2024-05-13] MEDS ORDERED: ALBU18HF2 IH (09:17)
[2024-05-13] MEDS ORDERED: P20 MT (09:17)
[2024-05-13 09:37] VITALS: BP 143/62; PULSE 63; TEMP 97.2; O2SAT 100
[2024-05-13] MEDS: METHYLPREDNISOLONE SOD SUCC 40MG/ML (ACT-O-VIAL) IV SCH (10:01)
[2024-05-13 11:33] VITALS: PULSE 80; RESP 17; O2SAT 96
== END 2024-05-13 14:00 | disposition home or self-care (01) | DRG 140 ==
LOC: ER 12:22 → EDBEDREQ 12:50 → EDBEDREQSVC 18:01 → 5WST 18:11 → EDBEDREQ 18:13 → 6EST 05-13 08:50
PROVIDERS: ADMIT Internal Medicine; ATTEND Internal Medicine
DX: J44.1 Chronic obstructive pulmonary disease with (acute) exacerbation (principal); J96.01 Acute respiratory failure with hypoxia; R65.10 Systemic inflammatory response syndrome (SIRS) of non-infectious origin without acute organ dysfunction; J20.9 Acute bronchitis, unspecified; J96.02 Acute respiratory failure with hypercapnia; I25.10 Atherosclerotic heart disease of native coronary artery without angina pectoris; I10 Essential (primary) hypertension; F17.210 Nicotine dependence, cigarettes, uncomplicated; J44.0 Chronic obstructive pulmonary disease with (acute) lower respiratory infection; M71.22 Synovial cyst of popliteal space [Baker], left knee; Z71.6 Tobacco abuse counseling; Z82.49 Family history of ischemic heart disease and other diseases of the circulatory system
CPT/HCPCS: 36415; 36600; 71045; 80048; 80053; 80305; 81003; 82375; 82805; 83036; 83735; 83880; 84100; 84145; 84439; 84443; 84484; 85025; 93005; 93970; 94070; 94640; 94664; 98960; 99285; J0456; J1650; J1885; J2919; J2920

== ENCOUNTER 2024-10-12 17:21 | Emergency (ER) | payer BC, MEDICAID ==
[~2024-10-12] VITALS: Ht 167.6 cm; Wt 75.0 kg
[~2024-10-12 17:21] MED LIST changes: -AZIT500T8 MT; -BENZ-16 MT; -CHOL100044 PO; -FLUT1BLS3 INH; -HYDR-4001 MT; +IBUP-2028 MT; +MV-M1CAP15 MT; +NICO-789 EXT; -P20 MT; +PRED5TAB48 MT
[2024-10-12 17:25] VITALS: O2SAT 98
[2024-10-12] MEDS: MORPHINE SULFATE 4 MG/ML INJ (FOR IV/IM USE) IM ONE (18:26)
[2024-10-12] MEDS: IBUPROFEN 800MG TABLET PO ONE (18:37)
[2024-10-12 18:52] LABS: BASOPHILS % 0.7 % (0.0-2.0); EOSINOPHILS % 1.5 % (0.0-5.0); HEMATOCRIT. 38.7 % (36.0-48.0); HEMOGLOBIN. 12.4 g/dL (12.0-16.0); LYMPHOCYTES % 25.1 % (20.0-50.0); MEAN CORPUSCULAR HGB CONC 32.1 g/dL (31.0-37.0); MEAN CORPUSCULAR VOLUME 87.2 fL (81.0-99.0); MEAN PLATELET VOLUME 8.5 fl (7.4-10.4); MONOCYTES % 9.6 % (2.0-8.0); NEUTROPHILS % 63.1 % (40.0-76.0); PLATELET 243 x1000/uL (130-400); RED BLOOD CELL COUNT 4.44 mill/uL (4.2-5.4); RED CELL DISTRIBUTION WIDTH 15.1 % (11.6-14.6); WHITE BLOOD COUNT 7.9 x1000/uL (4.5-11.0)
[2024-10-12 18:58] LABS: CHLORIDE 108 mEq/L (98-107); POTASSIUM 3.8 mEq/L (3.5-5.1); SODIUM 145 mEq/L (136-145)
[2024-10-12 18:59] LABS: CALCIUM 9.2 mg/dL (8.7-10.4); CARBON DIOXIDE 32 mEq/L (21-32)
[2024-10-12 19:02] LABS: D-DIMER 0.52 mg/L FEU (<0.50); PROTHROMBIN TIME 10.4 sec (9.6-11.0)
[2024-10-12 19:04] LABS: CREATININE 0.9 mg/dL (0.6-1.0); GLUCOSE 94 mg/dL (70-105); UREA NITROGEN BLOOD 8 mg/dL (9-23)
[2024-10-12 19:05] LABS: TROPONIN I HIGH SENSITIVITY 4 ng/L (3.0-34)
[2024-10-12 20:38] LABS: TROPONIN I HIGH SENSITIVITY 4 ng/L (3.0-34)
[2024-10-12 21:32] LABS: CLARITY URINE CLEAR (CLEAR); COLOR URINE YELLOW (YELLOW); GLUCOSE URINE NEGATIVE (NEGATIVE); KETONES URINE TRACE (NEGATIVE); LEUKOCYTE ESTERASE URINE NEGATIVE (NEGATIVE); NITRITE URINE NEGATIVE (NEGATIVE); OCCULT BLOOD URINE NEGATIVE (NEGATIVE); PROTEIN URINE NEGATIVE (NEGATIVE); SPECIFIC GRAVITY URINE 1.019 (1.005-1.030)
[2024-10-12] MEDS: HYDROCODONE/ACETAMINOPHEN 5/325MG TABLET PO ONE (21:54)
[2024-10-12] MEDS ORDERED: ONDA-239 PO (23:06)
[2024-10-12] MEDS ORDERED: HYDR-4001 MT (23:06)
[2024-10-12] MEDS: ONDANSETRON 4MG ODT PO ONE (23:25)
[2024-10-12 23:26] VITALS: BP 134/75; PULSE 70; RESP 18; TEMP 36.7; O2SAT 100
== END 2024-10-12 23:29 | disposition home or self-care (01) ==
LOC: ER 17:21
DX: M54.9 Dorsalgia, unspecified (principal); E78.00 Pure hypercholesterolemia, unspecified; J44.9 Chronic obstructive pulmonary disease, unspecified; I10 Essential (primary) hypertension; Z99.81 Dependence on supplemental oxygen; Z90.710 Acquired absence of both cervix and uterus; Z79.899 Other long term (current) drug therapy; Z79.82 Long term (current) use of aspirin; Z91.041 Radiographic dye allergy status; Z88.8 Allergy status to other drugs, medicaments and biological substances
CPT/HCPCS: 99285; 71250; 80048; 81003; 83880; 85025; 85379; 85610; 84484; 36415; 74176; 96372; Q0162; J2270

== ENCOUNTER 2025-03-30 13:15 | Inpatient (IN) | payer MEDICARE, MEDICAID ==
[~2025-03-30] VITALS: Ht 165.1 cm; Wt 100.7 kg
[2025-03-30] VITALS (9 sets, daily range): BP systolic 124–159; BP diastolic 66–77; PULSE 62–96; RESP 16–27; TEMP 36.5848–36.6; O2SAT 96–100
[~2025-03-30 13:15] MED LIST changes: -IBUP-2028 MT; +LEVO750T68 MT; +MAXOS EACHEYE; -NICO-789 EXT; +P20 MT; -POLY17PO3 PO; -PRED5TAB48 MT; +PROM6.2533 PO; -VARE1TAB22 MT
[2025-03-30] MEDS: SODIUM CHLORIDE 0.9% (SEPSIS BOLUS) IV ONE (13:44)
[2025-03-30] MEDS: CEFTRIAXONE 1GM/50ML 50 ML IV ONE (13:48)
[2025-03-30] MEDS: METHYLPREDNISOLONE SOD SUCC 125MG/2ML (ACT-O-VIAL) IV ONE (13:48)
[2025-03-30] MEDS: IPRATROPIUM BROMIDE (0.02%) 0.5MG/2.5ML NEB HHN SCH (14:05)
[2025-03-30] MEDS: ALBUTEROL (0.083%) 2.5MG/3ML NEB HHN SCH (14:05)
[2025-03-30 14:13] LABS: HEMATOCRIT. 39.6 % (36.0-48.0); HEMOGLOBIN. 12.4 g/dL (12.0-16.0); MEAN PLATELET VOLUME 8.3 fl (7.4-10.4); PLATELET 267 x1000/uL (130-400); RED BLOOD CELL COUNT 4.48 mill/uL (4.2-5.4); RED CELL DISTRIBUTION WIDTH 16.0 % (11.6-14.6)
[2025-03-30 14:27] LABS: INR 0.9
[2025-03-30 14:29] LABS: CREATININE 0.7 mg/dL (0.6-1.0)
[2025-03-30 14:30] LABS: UREA NITROGEN BLOOD 6 mg/dL (9-23)
[2025-03-30] MEDS: MORPHINE SULFATE 4 MG/ML INJ (FOR IV/IM USE) IV ONE (14:30)
[2025-03-30 14:31] LABS: ASPARTATE AMINOTRANSFERASE 13 IU/L (<34); TROPONIN I HIGH SENSITIVITY 4 ng/L (3.0-34)
[2025-03-30 14:32] LABS: BILIRUBIN DIRECT < 0.1 mg/dL (<=3.0); BILIRUBIN TOTAL 0.3 mg/dL (0.1-1.0); PROTEIN TOTAL 6.8 g/dL (6.0-8.3)
[2025-03-30 14:34] LABS: BG DEOXYHEMOGLOBIN 34.2 % (0.0-5.0)
[2025-03-30 14:41] LABS: INFLUENZA TYPE A Presumptive Negative (Pres. Neg.)
[2025-03-30 14:45] LABS: RESPIRATORY SYNCYTIAL VIRUS Not Detected (Not Detectd)
[2025-03-30 14:46] LABS: INFLUENZA TYPE B Presumptive Negative (Pres. Neg.)
[2025-03-30] MEDS: AZITHROMYCIN 500MG/250ML 250 ML IV ONE (15:36)
[2025-03-30 15:43] LABS: CLARITY URINE CLOUDY (CLEAR); COLOR URINE YELLOW (YELLOW); GLUCOSE URINE NEGATIVE (NEGATIVE); KETONES URINE NEGATIVE (NEGATIVE); LEUKOCYTE ESTERASE URINE NEGATIVE (NEGATIVE); NITRITE URINE NEGATIVE (NEGATIVE); OCCULT BLOOD URINE NEGATIVE (NEGATIVE); PH URINE 7.5 (4.5-8.0); PROTEIN URINE TRACE (NEGATIVE); SPECIFIC GRAVITY URINE 1.013 (1.005-1.030); UROBILINOGEN URINE 1.0 E.U./dL (0.2-1.0)
[2025-03-30 15:55] LABS: BACTERIA URINE TRACE; RBC URINE 0-2 /hpf (0-2); SQUAMOUS EPITHELIAL CELL URINE 1+ /lpf (RARE/1+); WBC URINE 0-2 /hpf (0-2)
[2025-03-30 16:04] LABS: LYMPHOCYTES % MANUAL 13.0 % (20.0-60.0); MONOCYTES % MANUAL 5.0 % (2.0-8.0); NEUTROPHILS % MANUAL 82.0 % (45.0-75.0); PLATELET ESTIMATE NORMAL
[2025-03-30] MEDS ORDERED: ONDANSETRON HCL 4MG/2ML INJ IV PRN (17:15)
[2025-03-30] MEDS: HYDROCODONE/ACETAMINOPHEN 5/325MG TABLET PO PRN (21:39)
[2025-03-30] MEDS: IPRATROPIUM/ALBUTEROL 0.5-3(2.5)MG/3ML NEB HHN PRN (22:20)
[2025-03-31] VITALS (19 sets, daily range): BP systolic 125–158; BP diastolic 56–132; PULSE 50–75; RESP 13–26; TEMP 36.2–36.7; O2SAT 98–100
[2025-03-31 00:49] LABS: TROPONIN I HIGH SENSITIVITY < 4 ng/L (3.0-34)
[2025-03-31 00:50] LABS: CREATINE KINASE MB FRACTION 2.3 ng/mL (0.5-3.6)
[2025-03-31] MEDS: ACETAMINOPHEN 325MG TABLET PO PRN (01:11)
[2025-03-31] MEDS ORDERED: HYDRALAZINE 20MG/ML VIAL IV PRN (09:45)
[2025-03-31] MEDS: METHYLPREDNISOLONE SOD SUCC 40MG/ML (ACT-O-VIAL) IV SCH (10:31)
[2025-03-31] MEDS: ENOXAPARIN 40MG/0.4ML SYR SUBCUT SCH (10:31)
[2025-03-31] MEDS: ASPIRIN 81MG EC TABLET PO SCH (10:32)
[2025-03-31] MEDS: LORATADINE 10MG TABLET PO SCH (10:34)
[2025-03-31] MEDS: LOSARTAN 50 MG TABLET PO SCH (10:39)
[2025-03-31] MEDS ORDERED: PROMETHAZINE 6.25 MG/5 ML PO PRN (11:00)
[2025-03-31 12:16] LABS: BASOPHILS % 0.6 % (0.0-2.0); EOSINOPHILS % 0.0 % (0.0-5.0); HEMATOCRIT. 39.0 % (36.0-48.0); HEMOGLOBIN. 12.1 g/dL (12.0-16.0); LYMPHOCYTES % 12.1 % (20.0-50.0); MEAN PLATELET VOLUME 8.8 fl (7.4-10.4); MONOCYTES % 5.8 % (2.0-8.0); NEUTROPHILS % 81.5 % (40.0-76.0); PLATELET 218 x1000/uL (130-400); RED BLOOD CELL COUNT 4.40 mill/uL (4.2-5.4); RED CELL DISTRIBUTION WIDTH 16.1 % (11.6-14.6)
[2025-03-31 12:31] LABS: TROPONIN I HIGH SENSITIVITY 4 ng/L (3.0-34)
[2025-03-31] MEDS: MONTELUKAST SODIUM 10MG TABLET PO SCH (18:01)
[2025-04-01] VITALS (12 sets, daily range): BP systolic 123–142; BP diastolic 58–78; PULSE 49–93; RESP 15–22; TEMP 36.2–36.7; O2SAT 93–100
[2025-04-01 10:44] LABS: BG BASE EXCESS 6.0 mmol/L (-2.0-3.0); BG CARBOXYHEMOGLOBIN 0.6 % (0.5-1.5); BG DEOXYHEMOGLOBIN 2.6 % (0.0-5.0); BG FLOW(L/min) 3.00 L/min; BG FRACTION INSPIRED OXYGEN 32; BG HCO3 ACT 32.9 mmol/L (21.0-28.0); BG METHEMOGLOBIN 0.3 % (0.5-1.5); BG OXYGEN SATURATION 97.4 % (94.0-98.0); BG OXYHEMOGLOBIN 96.5 % (94.0-98.0); BG PCO2 58.3 mmHg (32.0-45.0); BG PH 7.370 (7.350-7.450); BG PO2 93.5 mmHg (83.0-108.0); BG SAMPLE SITE RIGHT RADIAL; BG TOTAL HEMOGLOBIN 13.0 g/dL (12.0-16.0); BG VENT MODE NASAL CANNULA
[2025-04-01] MEDS ORDERED: LOSA50TA41 MT (13:39)
[2025-04-01] MEDS ORDERED: ASPI-1497 MT (13:39)
[2025-04-01] MEDS ORDERED: PRED5TAB48 MT (13:39)
[2025-04-01 14:05] LABS: HEMATOCRIT. 38.7 % (36.0-48.0); HEMOGLOBIN. 12.0 g/dL (12.0-16.0); MEAN PLATELET VOLUME 8.5 fl (7.4-10.4); PLATELET 243 x1000/uL (130-400); RED BLOOD CELL COUNT 4.36 mill/uL (4.2-5.4); RED CELL DISTRIBUTION WIDTH 15.8 % (11.6-14.6)
[2025-04-01 14:07] LABS: CREATININE 0.7 mg/dL (0.6-1.0); UREA NITROGEN BLOOD 9 mg/dL (9-23)
[2025-04-01 14:09] LABS: PHOSPHORUS 2.7 mg/dL (2.5-4.9)
[2025-04-01 15:49] LABS: BASOPHILS % MANUAL 1.0 % (0.0-2.0); LYMPHOCYTES % MANUAL 4.0 % (20.0-60.0); MONOCYTES % MANUAL 7.0 % (2.0-8.0); NEUTROPHILS % MANUAL 88.0 % (45.0-75.0); PLATELET ESTIMATE MARKEDLY INCREASED
== END 2025-04-01 18:30 | disposition home or self-care (01) | DRG 190 ==
LOC: ER 13:15 → EDBEDREQSVC 15:15 → 5EST 16:01 → EDBEDREQTM 16:04 → EDBEDREQ 16:04 → ENRESERV 18:04
PROVIDERS: ADMIT Internal Medicine; ATTEND Internal Medicine
PROC: 5A09357 Assistance with Respiratory Ventilation, Less than 24 Consecutive Hours, Continuous Positive Airway Pressure (ICD-10-PCS; principal; 2025-03-30)
PROC: 5A09357 Assistance with Respiratory Ventilation, Less than 24 Consecutive Hours, Continuous Positive Airway Pressure (ICD-10-PCS; 2025-03-31)
DX: J44.1 Chronic obstructive pulmonary disease with (acute) exacerbation (principal); J96.91 Respiratory failure, unspecified with hypoxia; J96.92 Respiratory failure, unspecified with hypercapnia; Z99.81 Dependence on supplemental oxygen; I10 Essential (primary) hypertension; Z20.822 Contact with and (suspected) exposure to COVID-19; F17.200 Nicotine dependence, unspecified, uncomplicated; E78.00 Pure hypercholesterolemia, unspecified; Z79.899 Other long term (current) drug therapy
CPT/HCPCS: 36415; 36600; 71045; 80048; 80076; 81003; 82375; 82550; 82553; 82803; 82805; 83605; 83735; 83880; 84100; 84145; 84484; 85025; 87420; 87426; 87804; 93005; 94070; 94640; 94660; 96365; 96367; 96375; 99285; A4606; J0456; J0696; J1650; J2919; J7030

== ENCOUNTER 2025-04-09 14:14 | Inpatient (IN) | payer MEDICARE, MEDICAID ==
[~2025-04-09] VITALS: Ht 167.6 cm; Wt 85.3 kg
[~2025-04-09 14:14] MED LIST changes: -LEVO750T68 MT
[2025-04-09 14:54] VITALS: PULSE 90; RESP 18; O2SAT 99
[2025-04-09] MEDS: ALBUTEROL (0.083%) 2.5MG/3ML NEB HHN SCH (14:54)
[2025-04-09] MEDS: IPRATROPIUM BROMIDE (0.02%) 0.5MG/2.5ML NEB HHN SCH (14:54)
[2025-04-09] MEDS: CEFTRIAXONE 1GM/50ML 50 ML IV ONE (15:10)
[2025-04-09] MEDS: SODIUM CHLORIDE 0.9% (SEPSIS BOLUS) IV ONE (15:10)
[2025-04-09 15:14] VITALS: PULSE 105; RESP 18
[2025-04-09] MEDS: METHYLPREDNISOLONE SOD SUCC 125MG/2ML (ACT-O-VIAL) IV ONE (15:34)
[2025-04-09] MEDS: ASPIRIN 81MG TABLET PO ONE (15:34)
[2025-04-09] MEDS: AZITHROMYCIN 500MG/250ML 250 ML IV ONE (15:40)
[2025-04-09 15:43] VITALS: PULSE 106; RESP 18
[2025-04-09 15:53] LABS: BASOPHILS % 0.5 % (0.0-2.0); EOSINOPHILS % 0.3 % (0.0-5.0); HEMATOCRIT. 38.5 % (36.0-48.0); HEMOGLOBIN. 11.8 g/dL (12.0-16.0); LYMPHOCYTES % 8.0 % (20.0-50.0); MEAN PLATELET VOLUME 9.1 fl (7.4-10.4); MONOCYTES % 5.2 % (2.0-8.0); NEUTROPHILS % 86.0 % (40.0-76.0); PLATELET 257 x1000/uL (130-400); RED BLOOD CELL COUNT 4.29 mill/uL (4.2-5.4); RED CELL DISTRIBUTION WIDTH 16.1 % (11.6-14.6)
[2025-04-09 16:01] LABS: INR 0.9
[2025-04-09 16:06] LABS: CREATININE 0.8 mg/dL (0.6-1.0)
[2025-04-09 16:07] LABS: UREA NITROGEN BLOOD 6 mg/dL (9-23)
[2025-04-09 16:08] LABS: ASPARTATE AMINOTRANSFERASE 24 IU/L (<34)
[2025-04-09 16:09] LABS: BILIRUBIN DIRECT 0.1 mg/dL (<=3.0); BILIRUBIN TOTAL 0.4 mg/dL (0.1-1.0); PROTEIN TOTAL 6.7 g/dL (6.0-8.3)
[2025-04-09 16:31] LABS: TROPONIN I HIGH SENSITIVITY 6 ng/L (3.0-34)
[2025-04-09] MEDS ORDERED: ALBUTEROL (0.083%) 2.5MG/3ML NEB HHN ONE (17:15)
[2025-04-09] MEDS: SULFAMETHOXAZOLE/TRIMETHOPRIM 800/160MG TABLET PO ONE (17:21)
[2025-04-09 17:42] LABS: CLARITY URINE CLEAR (CLEAR); COLOR URINE YELLOW (YELLOW); GLUCOSE URINE TRACE (NEGATIVE); KETONES URINE NEGATIVE (NEGATIVE); LEUKOCYTE ESTERASE URINE NEGATIVE (NEGATIVE); NITRITE URINE NEGATIVE (NEGATIVE); OCCULT BLOOD URINE NEGATIVE (NEGATIVE); PH URINE 6.5 (4.5-8.0); PROTEIN URINE NEGATIVE (NEGATIVE); SPECIFIC GRAVITY URINE 1.012 (1.005-1.030); UROBILINOGEN URINE 1.0 E.U./dL (0.2-1.0)
[2025-04-09 18:12] LABS: SQUAMOUS EPITHELIAL CELL URINE 2+ /lpf (RARE/1+)
[2025-04-09 18:15] LABS: BACTERIA URINE 1+; RBC URINE 0-2 /hpf (0-2); WBC URINE 0-2 /hpf (0-2)
[2025-04-09] MEDS: HYDROCODONE/ACETAMINOPHEN 5/325MG TABLET PO ONE (18:30)
[2025-04-09 19:44] VITALS: BP 139/79; PULSE 79; RESP 19; TEMP 36.696
[2025-04-09 20:00] VITALS: BP 139/79; PULSE 79; RESP 19; TEMP 36.7
[2025-04-09] MEDS ORDERED: ACETAMINOPHEN 325MG TABLET PO PRN (20:45)
[2025-04-09] MEDS ORDERED: ZOLPIDEM TARTRATE 5MG TABLET PO PRN (20:45)
[2025-04-09] MEDS ORDERED: CLONIDINE 0.1MG TABLET PO PRN (20:45)
[2025-04-09] MEDS ORDERED: ONDANSETRON HCL 4MG/2ML INJ IV PRN (20:45)
[2025-04-09] MEDS ORDERED: MAGNESIUM/ALUMINUM HYDROXIDE/SIMETHICONE 30ML UDC PO PRN (20:45)
[2025-04-09] MEDS ORDERED: ENOXAPARIN 40MG/0.4ML SYR SUBCUT SCH (20:45)
[2025-04-09] MEDS: ENOXAPARIN 30MG/0.3ML SYR SUBCUT SCH (21:21)
[2025-04-09] MEDS: HYDROCODONE/ACETAMINOPHEN 5/325MG TABLET PO PRN (21:26)
[2025-04-09 23:33] LABS: *AMPHETAMINES SCREEN URINE NEGATIVE (NEGATIVE); *BARBITURATES SCREEN URINE NEGATIVE (NEGATIVE); *BENZODIAZEPINES SCREEN URINE NEGATIVE (NEGATIVE); *COCAINE SCREEN URINE NEGATIVE (NEGATIVE); CANNABINOID URINE SCREEN NEGATIVE (NEGATIVE); ECSTASY MDMA SCREEN URINE NEGATIVE (NEGATIVE); METHADONE URINE SCREEN NEGATIVE (NEGATIVE); OPIATES URINE SCREEN PRESUMPTIVE POSITIVE (NEGATIVE); PHENCYCLIDINE URINE SCREEN NEGATIVE (NEGATIVE)
[2025-04-09] MEDS: METHYLPREDNISOLONE SOD SUCC 40MG/ML (ACT-O-VIAL) IV SCH (23:39)
[2025-04-10] VITALS (13 sets, daily range): BP systolic 133–143; BP diastolic 50–68; PULSE 64–85; RESP 16–21; TEMP 36.2–36.9; O2SAT 96–98
[2025-04-10] MEDS: IPRATROPIUM/ALBUTEROL 0.5-3(2.5)MG/3ML NEB NEB SCH
[2025-04-10 00:59] LABS: TROPONIN I HIGH SENSITIVITY 5 ng/L (3.0-34)
[2025-04-10 07:42] LABS: TROPONIN I HIGH SENSITIVITY 5 ng/L (3.0-34)
[2025-04-10 08:08] LABS: HEMATOCRIT. 36.4 % (36.0-48.0); HEMOGLOBIN. 11.2 g/dL (12.0-16.0); MEAN PLATELET VOLUME 8.7 fl (7.4-10.4); PLATELET 226 x1000/uL (130-400); RED BLOOD CELL COUNT 4.10 mill/uL (4.2-5.4); RED CELL DISTRIBUTION WIDTH 15.9 % (11.6-14.6)
[2025-04-10] MEDS: PANTOPRAZOLE SODIUM 40 MG/VIAL IV SCH (11:55)
[2025-04-10] MEDS: NICOTINE 7MG PATCH TD SCH (11:57)
[2025-04-10] MEDS: AZITHROMYCIN 500MG/250ML 250 ML IV SCH (14:35)
[2025-04-10] MEDS: CEFTRIAXONE 1GM/50ML 50 ML IV SCH (14:51)
[2025-04-11] VITALS (8 sets, daily range): BP systolic 130–146; BP diastolic 56–69; PULSE 62–82; RESP 16–18; TEMP 36.1–36.6; O2SAT 95–98
[2025-04-11 09:15] LABS: HEMATOCRIT. 35.1 % (36.0-48.0); HEMOGLOBIN. 11.2 g/dL (12.0-16.0); MEAN PLATELET VOLUME 8.8 fl (7.4-10.4); PLATELET 225 x1000/uL (130-400); RED BLOOD CELL COUNT 3.99 mill/uL (4.2-5.4); RED CELL DISTRIBUTION WIDTH 15.5 % (11.6-14.6)
[2025-04-11 09:29] LABS: CREATININE 0.7 mg/dL (0.6-1.0)
[2025-04-11 09:30] LABS: UREA NITROGEN BLOOD 9 mg/dL (9-23)
[2025-04-11] MEDS ORDERED: NALOXONE HCL 0.4MG/ML VIAL IV PRN (10:00)
[2025-04-11] MEDS: METHYLPREDNISOLONE SOD SUCC 40MG/ML (ACT-O-VIAL) IV SCH (10:27)
[2025-04-11] MEDS ORDERED: NICO-645 TP (10:45)
[2025-04-11] MEDS ORDERED: P20 MT (10:45)
[2025-04-11] MEDS ORDERED: ALBU18HF2 IH (10:45)
[2025-04-11] MEDS ORDERED: SALM50DI INH (10:45)
[2025-04-11] MEDS ORDERED: CEFU500T66 MT (10:47)
[2025-04-11 16:48] LABS: LYMPHOCYTES % MANUAL 4.0 % (20.0-60.0); MONOCYTES % MANUAL 3.0 % (2.0-8.0); NEUTROPHILS % MANUAL 93.0 % (45.0-75.0); PLATELET ESTIMATE NORMAL
[2025-04-11 20:21] LABS: LYMPHOCYTES % MANUAL 5.0 % (20.0-60.0); MONOCYTES % MANUAL 5.0 % (2.0-8.0); NEUTROPHILS % MANUAL 90.0 % (45.0-75.0)
[2025-04-11 20:22] LABS: PLATELET ESTIMATE NORMAL
== END 2025-04-11 13:40 | disposition home or self-care (01) | DRG 191 ==
LOC: ER 14:14 → EDBEDREQTM 18:07 → EDBEDREQ 18:07 → 6WST 19:16
PROVIDERS: ADMIT Internal Medicine; ATTEND Internal Medicine
DX: J44.1 Chronic obstructive pulmonary disease with (acute) exacerbation (principal); E87.29 Other acidosis; Z99.81 Dependence on supplemental oxygen; L02.224 Furuncle of groin; I10 Essential (primary) hypertension; D64.9 Anemia, unspecified; E05.80 Other thyrotoxicosis without thyrotoxic crisis or storm; E78.5 Hyperlipidemia, unspecified; D72.829 Elevated white blood cell count, unspecified; F17.210 Nicotine dependence, cigarettes, uncomplicated; Z79.82 Long term (current) use of aspirin
CPT/HCPCS: 36415; 71045; 80048; 80076; 80305; 81003; 83605; 83880; 84145; 84443; 84484; 85025; 93005; 94070; 94640; 94664; 98960; 99285; A4615; J0456; J0696; J1650; J2470; J2919; J7030